=== PATIENT | male | born 1970 | race American Indian/Alaskan Native ===

== ENCOUNTER 2017-11-11 13:46 | Inpatient (IN) | payer OTHER ==
[2017-11-11 15:57] LABS: Hematocrit 42.4 % (35.5-45.6); Hemoglobin 14.5 gm/dl (11.8-15.2); Mean Corpuscular HGB Conc 34 % (32-34); Mean Corpuscular Hemoglobin 32 pg (28-32); Mean Corpuscular Volume 93 fl (84-94); Platelet Count 329 K/mm3 (140-440); Red Blood Count 4.58 M/mm3 (3.65-5.03); Red Cell Distribution Width 15.5 % (13.2-15.2)
[2017-11-11 15:58] LABS: Basophils % (Auto) 0.4 % (0.0-1.8); Eosinophils % (Auto) 0.7 % (0.0-4.3); INR 0.87 (0.87-1.13); Lymphocytes # (Auto) 1.4 K/mm3 (1.2-5.4); Lymphocytes % (Auto) 25.3 % (13.4-35.0); Monocytes # (Auto) 0.5 K/mm3 (0.0-0.8); Monocytes % (Auto) 8.9 % (0.0-7.3)
[2017-11-11 15:59] LABS: Partial Thromboplastin Time 31.7 Sec. (24.2-36.6)
[2017-11-11 16:08] LABS: Lipase 218 units/L (13-60)
[2017-11-11 16:10] LABS: Alanine Aminotransferase 549 units/L (7-56); Albumin 4.3 g/dL (3.9-5); BUN/Creatinine Ratio 37; Blood Urea Nitrogen 11 mg/dL (9-20); Calcium 10.1 mg/dL (8.4-10.2); Hemolysis Index 18
[2017-11-11 16:21] LABS: Bilirubin,Direct 10.3 mg/dL (0-0.2)
[2017-11-11] MEDS ORDERED: ZOSYN/NS 3.375GM/50ML 3.375 GM/50 ML BAG IV ONE (18:09)
[2017-11-11] MEDS ORDERED: NACL 0.9% 1000 ML 1,000 ML ONE (18:31)
--- NOTE | 2017-11-11 18:43 | Emergency Department Report ---
ED Abdominal Pain HPI - General Chief Complaint: Abdominal Pain Stated Complaint: ABD PAIN, YELLOW EYES Time Seen by Provider: 11/11/17 17:05 Source: patient Mode of arrival: Ambulatory Limitations: No Limitations - History of Present Illness Initial Comments: Percocet on the of this month he started having diarrhea and areas progressively gotten worse. A few days prior to that he was having some abdominal pain in the epigastric area, moderate intensity, nonradiating with no aggravating or relieving factor. Patient denies any nausea or vomiting or fever. Patient also noticed a few days ago that the white parts of his eyes have been yellowish in color. He describes his epigastric pain as intermittent MD Complaint: abdominal pain Onset/Timin -: days(s) Migration to: epigastric Severity scale (0 -10): 0 - Related Data Allergies Allergy/AdvReac Type Severity Reaction Status Date / Time No Known Allergies Allergy Unverified 11/11/17 14:35 ED Review of Systems ROS: Stated complaint: ABD PAIN, YELLOW EYES Other details as noted in HPI Comment: All other systems reviewed and negative ED Past Medical Hx - Past Medical History Previous Medical History?: Yes Additional medical history: ETOH abuse - Surgical History Past Surgical History?: No - Social History Smoking Status: Never Smoker Substance Use Type: Alcohol, Non Opiate Pain ED Physical Exam - General Limitations: No Limitations General appearance: alert, in no apparent distress - Head Head exam: Present: atraumatic, normocephalic - Eye Eye exam: Present: other (icteric conjunctiva) - ENT ENT exam: Present: mucous membranes moist - Neck Neck exam: Present: normal inspection. Absent: tenderness - Respiratory Respiratory exam: Present: normal lung sounds bilaterally. Absent: respiratory distress - Cardiovascular Cardiovascular Exam: Present: regular rate, normal rhythm. Absent: systolic murmur, diastolic murmur, rubs, gallop - GI/Abdominal GI/Abdominal exam: Present: soft, normal bowel sounds - Rectal Rectal exam: Present: deferred - Extremities Exam Extremities exam: Present: normal inspection - Back Exam Back exam: Present: normal inspection, full ROM - Neurological Exam Neurological exam: Present: alert, oriented X3 - Psychiatric Psychiatric exam: Present: normal affect, normal mood - Skin Skin exam: Present: warm, dry, intact, normal color. Absent: rash ED Course Vital Signs 11/11/17 11/11/17 14:35 17:01 Temperature 98.6 F 98.4 F Pulse Rate 101 H 92 H Respiratory 20 14 Rate Blood Pressure 141/92 Blood Pressure 148/92 [Left] O2 Sat by Pulse 100 100 Oximetry ED Medical Decision Making - Lab Data Result diagrams: 11/11/17 15:25 11/11/17 15:25 Critical care attestation.: If time is entered above; I have spent that time in minutes in the direct care of this critically ill patient, excluding procedure time. ED Disposition Condition: Stable Referrals: PRIMARY CARE [Primary Care Provider] - 3-5 Days
[2017-11-11] MEDS ORDERED: NACL 0.9% 1000 ML 1,000 ML IV ONE ×2 (18:46→21:57)
--- NOTE | 2017-11-11 19:20 | Cat Scan Report ---
FINAL REPORT PROCEDURE: CT ABDOMEN PELVIS W CON TECHNIQUE: Computerized axial tomography of the abdomen and pelvis was performed after the IV injection of iodinated nonionic contrast. HISTORY: choledocholithiasis, pancreatitis COMPARISON: No prior studies are available for comparison. FINDINGS: Lower Lung yeung: No focal abnormality seen. Upper Abdomen: There is mild increased density dependently in the gallbladder. There may be sludge or noncalcified gallstones. The intrahepatic ducts are mildly diffusely distended. Common bile duct also appears mildly distended. Pancreatic duct also appears mildly prominent. The pancreas otherwise is unremarkable. No masses or pseudocysts are identified. There appears to be minimal hazy increased density in the adipose tissue adjacent to the pancreas. I cannot exclude mild pancreatitis. The adrenal glands and the spleen are unremarkable. Kidneys, Ureters and Urinary bladder: There are few small low-density cortical nodules in the left adrenal gland which appear to represent renal cortical cyst. The largest measures 1.8 centimeters greatest diameter. There appears to be early excretion of contrast from the collecting systems of both kidneys. No definite calculi are identified. There is no hydronephrosis. The ureters are not distended. No ureteral calculi are seen. The urinary bladder is unremarkable. Retroperitoneum: Abdominal aorta appears normal. No aneurysm is seen. Nonspecific subcentimeter lymph nodes are seen in the retroperitoneum. No pathologically enlarged lymph nodes are identified. Bowel: The left side of the colon appears collapsed otherwise unremarkable. No evidence of bowel obstruction or ascites. There is no free intraperitoneal gas. Normal-appearing appendix is seen in the upper pelvis to the right of midline. No acute bone abnormalities are identified. IMPRESSION: Intrahepatic bile duct dilatation. Common bile duct and pancreatic duct also appear dilated. There is mild increased density dependently in the gallbladder. I cannot exclude obstruction from stone or stricture in the distal common bile duct. There is minimal hazy increased density adjacent to the pancreas. I cannot exclude early pancreatitis. Pancreas otherwise is unremarkable. Small renal cortical cyst suspected left kidney. No other abnormalities are identified
[2017-11-11] MEDS ORDERED: ZOFRAN IV PRN (22:03)
[2017-11-11] MEDS ORDERED: MILK OF MAGNESIA PO PRN (22:03)
[2017-11-11] MEDS ORDERED: MORPHINE IV PRN (22:03)
[2017-11-11] MEDS ORDERED: DULCOLAX PR PRN (22:03)
--- NOTE | 2017-11-11 22:08 | History and Physical Report ---
History of Present Illness Date of examination: 11/11/17 History of present illness: 47-year-old man with history of alcohol abuse comes emergency room because his eyes turned yellow 2 days ago. He also complained of diarrhea, twice a day and abdominal pain. Abdominal pain is in the epigastric area which she describes as a sharp pain, intermittent in nature lasting for a few minutes, intensity 6/ 10, no radiation and he cannot identify exacerbating or relieving factors. His abdominal pain has been intermittent since October 29, no nausea vomiting, antibiotic use Review Of Systems: Constitutional: no weight loss Ears, eyes, nose, mouth and throat: no nasal congestion, no nasal discharge, no sinus pressure, blurry vision, diplopia Neck: No neck pain or rigidity. Cardiovascular: No chest pain, palpitations Respiratory: No shortness of breath, cough Gastrointestinal: No hematochezia Genitourinary : no dysuria, frequency , hematuria Musculoskeletal: no muscle ache Integumentary: no rash, no pruritis Neurological: no parathesias, focal weakness Endocrine: no cold or heat intolerance, no polyuria or polydipsia Hematologic/Lymphatic: no easy bruising, no easy bleeding, no gland swelling Allergic/Immunologic: no urticaria, no angioedema. PAST MEDICAL HISTORY:alcohol abuse PAST SURGICAL HISTORY: None FAMILY HISTORY: hypertention SOCIAL HISTORY: Drank one fifth of liquor on weekends, no tobacco or drugs Medications and Allergies Allergies Allergy/AdvReac Type Severity Reaction Status Date / Time No Known Allergies Allergy Unverified 11/11/17 14:35 Home Medications Medication Instructions Recorded Confirmed Last Taken Type No Known Home Medications [No 11/11/17 11/11/17 Unknown History Reported Home Medications] Active Meds: Active Medications Sodium Chloride (Nacl 0.9% 1000 Ml) 1,000 mls @ 999 mls/hr IV BOLUS ONE Stop: 11/11/17 22:57 Exam - Physical Exam Narrative exam: Gen. appearance: Patient lying in bed in no acute distress HEENT: Normocephalic/atraumatic, pupils equal round reactive to light, extra occular movement intact, no scleral icterus, no JVD or thyromegaly or nodule, neck is supple, mucous membrane moist, no erythema or exudate Heart: S1-S2, regular rate and rhythm Lungs: Clear to auscultation bilateral breathing comfortable Abdomen: Positive bowel sounds, tender in the epigastric area, nondistended, no organomegaly Extremities: No edema, cyanosis, clubbing Neuro:: Oriented 3 , cranial nerves II-12 intact, speech, motor intact Skin: No rash, nodules, warm dry - Constitutional Vitals: Temp Pulse Resp BP Pulse Ox 100.1 F H 87 22 124/76 100 11/11/17 19:33 11/11/17 19:33 11/11/17 19:33 11/11/17 19:33 11/11/17 19:33 Results - Labs CBC & Chem 7: 11/13/17 07:20 11/17/17 15:55 Labs: Abnormal lab results 11/11/17 11/11/17 11/11/17 Range/Units 15:25 15:25 15:25 RDW 15.5 H (13.2-15.2) % [place] % (Auto) 8.9 H (0.0-7.3) % Creatinine 0.3 L (0.8-1.5) mg/dL Glucose 101 H (75-100) mg/dL Lactic Acid 3.00 H* (0.7-2.0) mmol/L Total Bilirubin 15.60 H (0.1-1.2) mg/dL Direct Bilirubin 10.3 H (0-0.2) mg/dL AST 233 H (5-40) units/L ALT 549 H (7-56) units/L Alkaline Phosphatase 553 H (35-129) units/L Total Protein 8.5 H (6.3-8.2) g/dL Amylase (27-131) units/L Lipase (13-60) units/L 11/11/17 Range/Units 15:25 RDW (13.2-15.2) % [place] % (Auto) (0.0-7.3) % Creatinine (0.8-1.5) mg/dL Glucose (75-100) mg/dL Lactic Acid (0.7-2.0) mmol/L Total Bilirubin (0.1-1.2) mg/dL Direct Bilirubin (0-0.2) mg/dL AST (5-40) units/L ALT (7-56) units/L Alkaline Phosphatase (35-129) units/L Total Protein (6.3-8.2) g/dL Amylase 174 H (27-131) units/L Lipase 218 H (13-60) units/L - Imaging and Cardiology CT scan - abdomen: report reviewed CT scan - pelvis: report reviewed Assessment and Plan Assessment Gallstone pancreatitis Alcohol abuse Plan Admit to medicine Placed on bowel rest, start IV fluid, IV antibiotics, consult GI IV morphine, DVT prophylaxis
[2017-11-12] MEDS: ZOSYN/NS 4.5GM/100ML 4.5 GM/100 ML VIAL IV SCH ×4 (01:07→18:09)
[2017-11-12] MEDS: NACL 0.9% 1000 ML 1,000 ML IV SCH ×2 (01:07→10:30)
[2017-11-12 08:26] LABS: Basophils % (Auto) 0.4 % (0.0-1.8); Eosinophils # (Auto) 0.1 K/mm3 (0.0-0.4); Hematocrit 37.5 % (35.5-45.6); Hemoglobin 12.8 gm/dl (11.8-15.2); Lymphocytes # (Auto) 1.8 K/mm3 (1.2-5.4); Lymphocytes % (Auto) 42.6 % (13.4-35.0); Mean Corpuscular HGB Conc 34 % (32-34); Mean Corpuscular Hemoglobin 31 pg (28-32); Mean Corpuscular Volume 92 fl (84-94); Monocytes # (Auto) 0.4 K/mm3 (0.0-0.8); Monocytes % (Auto) 9.1 % (0.0-7.3); Platelet Count 235 K/mm3 (140-440); Red Blood Count 4.06 M/mm3 (3.65-5.03); Red Cell Distribution Width 15.2 % (13.2-15.2)
[2017-11-12 08:39] LABS: BUN/Creatinine Ratio 20; Blood Urea Nitrogen 8 mg/dL (9-20); Calcium 8.5 mg/dL (8.4-10.2); Hemolysis Index 0
--- NOTE | 2017-11-12 09:55 | Gastroenterology Consultation ---
History of Present Illness - Reason for Consult Consult date: 11/12/17 dilated CBD Requesting physician: SABINE MCKENZIE - History of Present Illness Patient is a 47 y/o male with PMH of ETOH abuse who presented to ED with c/o diarrhea, abdominal pain in the epigastric area described as intermittent, nonradiating, sharp, lasting for only a few minutes, along with yellowish color in his eyes. LFTs and lipase elevated on admission with Abd CT showing CBD dilation, to which GI has been consulted. This morning pt was resting in bed w/ o acute distress. He reports his abd pain has improved. No BMs so far this am. Denies fever, wt loss, N/V, pruritus, or signs of bleeding. No known hx or Fhx of liver disease. Admits to ETOH abuse with drinking on average one fifth of liquor per week. No hx of IV drug use. Past History Past Medical History: No medical history Past Surgical History: No surgical history Social history: alcohol abuse Family history: hypertension Medications and Allergies Allergies Allergy/AdvReac Type Severity Reaction Status Date / Time No Known Allergies Allergy Unverified 11/11/17 14:35 Home Medications Medication Instructions Recorded Confirmed Last Taken Type No Known Home Medications [No 11/11/17 11/11/17 Unknown History Reported Home Medications] Active Meds: Active Medications Acetaminophen (Tylenol) 650 mg PO Q4H PRN PRN Reason: Pain MILD(1-3)/Fever >100.5/ZHENG Bisacodyl (Dulcolax) 10 mg IN QDAY PRN PRN Reason: Constipation unrelieved by MOM Enoxaparin Sodium (Lovenox) 40 mg SUB-Q QDAY [facility] Sodium Chloride (Nacl 0.9% 1000 Ml) 1,000 mls @ 150 mls/hr IV DIRECT [facility] Last Admin: 11/12/17 01:07 Dose: 150 mls/hr Piperacillin Sod/Tazobactam Sod (Zosyn/Ns 4.5gm/100ml) 4.5 gm in 100 mls @ 200 mls/hr IV Q6HR DAY PRN Reason: Protocol Last Admin: 11/12/17 05:32 Dose: 200 mls/hr Magnesium Hydroxide (Milk Of Magnesia) 30 ml PO Q4H PRN PRN Reason: Constipation Morphine Sulfate (Morphine) 2 mg IV Q4H PRN PRN Reason: Pain, Moderate (4-6) Ondansetron HCl (Zofran) 4 mg IV Q8H PRN PRN Reason: N/V unrelieved by Reglan Review of Systems - Review of Systems All systems: negative Gastrointestinal: abdominal pain, diarrhea, jaundice Exam - Constitutional Vital Signs: Temp Pulse Resp BP Pulse Ox 98.7 F 80 20 122/79 99 11/12/17 08:28 11/12/17 08:28 11/12/17 08:28 11/12/17 08:28 11/12/17 08:28 General appearance: no acute distress, well-nourished - EENT Eyes: scleral icterus - Respiratory Respiratory: bilateral: CTA - Cardiovascular Rhythm: regular Heart Sounds: Present: S1 & S2 - Gastrointestinal General gastrointestinal: Present: soft, non-tender, non-distended, normal bowel sounds - Integumentary Integumentary: Present: warm, dry - Neurologic Neurological: alert and oriented x3 - Labs CBC & Chem 7: 11/12/17 07:06 11/12/17 07:06 Lab Results: Laboratory Results - last 24 hr 11/11/17 11/11/17 11/11/17 15:25 15:25 15:25 WBC 5.7 RBC 4.58 Hgb 14.5 Hct 42.4 MCV 93 MCH 32 MCHC 34 RDW 15.5 H Plt Count 329 Lymph % (Auto) 25.3 [place] % (Auto) 8.9 H Eos % (Auto) 0.7 Baso % (Auto) 0.4 Lymph # 1.4 [place] # 0.5 Eos # 0.0 Baso # 0.0 Seg Neutrophils % 64.7 Seg Neutrophils # 3.7 PT INR APTT Sodium 143 Potassium 3.6 Chloride 101.2 Carbon Dioxide 26 Anion Gap 19 BUN 11 Creatinine 0.3 L Estimated GFR > 60 BUN/Creatinine Ratio 37 Glucose 101 H Lactic Acid Calcium 10.1 Total Bilirubin 15.60 H Direct Bilirubin 10.3 H Indirect Bilirubin 5.3 AST 233 H ALT 549 H Alkaline Phosphatase 553 H Ammonia 39.0 Total Creatine Kinase 92 Total Protein 8.5 H Albumin 4.3 Albumin/Globulin Ratio 1.0 Amylase Lipase Plasma/Serum Alcohol 11/11/17 11/11/17 11/11/17 15:25 15:25 15:25 WBC RBC Hgb Hct MCV MCH MCHC RDW Plt Count Lymph % (Auto) [place] % (Auto) Eos % (Auto) Baso % (Auto) Lymph # [place] # Eos # Baso # Seg Neutrophils % Seg Neutrophils # PT 12.2 INR 0.87 APTT 31.7 Sodium Potassium Chloride Carbon Dioxide Anion Gap BUN Creatinine Estimated GFR BUN/Creatinine Ratio Glucose Lactic Acid 3.00 H* Calcium Total Bilirubin Direct Bilirubin Indirect Bilirubin AST ALT Alkaline Phosphatase Ammonia Total Creatine Kinase Total Protein Albumin Albumin/Globulin Ratio Amylase 174 H Lipase 218 H Plasma/Serum Alcohol 11/11/17 11/11/17 11/12/17 15:25 22:04 07:06 WBC 4.1 L RBC 4.06 Hgb 12.8 Hct 37.5 MCV 92 MCH 31 MCHC 34 RDW 15.2 Plt Count 235 Lymph % (Auto) 42.6 H [place] % (Auto) 9.1 H Eos % (Auto) 2.0 Baso % (Auto) 0.4 Lymph # 1.8 [place] # 0.4 Eos # 0.1 Baso # 0.0 Seg Neutrophils % 45.9 Seg Neutrophils # 1.9 PT INR APTT Sodium Potassium Chloride Carbon Dioxide Anion Gap BUN Creatinine Estimated GFR BUN/Creatinine Ratio Glucose Lactic Acid 1.10 Calcium Total Bilirubin Direct Bilirubin Indirect Bilirubin AST ALT Alkaline Phosphatase Ammonia Total Creatine Kinase Total Protein Albumin Albumin/Globulin Ratio Amylase Lipase Plasma/Serum Alcohol < 0.01 11/12/17 07:06 WBC RBC Hgb Hct MCV MCH MCHC RDW Plt Count Lymph % (Auto) [place] % (Auto) Eos % (Auto) Baso % (Auto) Lymph # [place] # Eos # Baso # Seg Neutrophils % Seg Neutrophils # PT INR APTT Sodium 143 Potassium 3.5 L Chloride 106.5 Carbon Dioxide 22 Anion Gap 18 BUN 8 L Creatinine 0.4 L Estimated GFR > 60 BUN/Creatinine Ratio 20 Glucose 88 Lactic Acid Calcium 8.5 D Total Bilirubin Direct Bilirubin Indirect Bilirubin AST ALT Alkaline Phosphatase Ammonia Total Creatine Kinase Total Protein Albumin Albumin/Globulin Ratio Amylase Lipase Plasma/Serum Alcohol Assessment and Plan 1.Dilated CBD 2.pancreatitis 2.Alcohol abuse -afebrile -WBC-WNL -plt 235, INR 0.87 -AST 233, ALT 549, alk phos 553, T.oswaldo 15.6 -lipase 218 -Abd CT showed intrahepatic bile duct dilation along with CBD and pancreatic duct dilation suggestive of stone vs stricture -will order MRCP and consider ERCP pending results -continue supportive care with IVF, pain management, and f/u labs -[facility] protocol -will follow
[2017-11-12] MEDS: LOVENOX SUB-Q SCH (10:39)
--- NOTE | 2017-11-12 15:33 | Progress Note ---
Assessment and Plan Assessment and plan: 47-year-old -[place] man with past medical history significant for "abuse presented to the emergency department complaining of abdominal pain and jaundice. Pancreatitis - Right upper quadrant pain, increased lipase, CT is suggestive - Bowel rest, pain control, IV fluid, get consulted - Currently abdominal pain is subsided - Will start clear liquid diet Transaminitis - Likely due to chronic hepatitis - We'll monitor - CT showed hepatic and pancreatic duct dilation - Patient need MRCP/ERCP - Hepatitis panel Alcohol Abuse - Patient counseled - We'll monitor for withdrawal, if he showed symptoms of withdrawal we'll put him on CIWA protocol DVT prophylaxis -Heparin Disposition - Continue inpatient care History Interval history: Patient was seen and evaluated this morning, abdominal pain subsided, no fever or chills. Hospitalist Physical - Physical exam Narrative exam: Not in cardiopulmonary distress. The patient appeared well nourished and normally developed. Vital signs as documented. Head exam is unremarkable. + scleral icterus . Neck is without jugular venous distension, thyromegaly, or carotid bruits. Lungs are clear to auscultation. Cardiac exam reveals regular rate and Rhythm. First and second heart sounds normal. No murmurs, rubs or gallops. Abdominal exam reveals normal bowel sounds, no masses, no organomegaly and no aortic enlargement. Extremities are nonedematous and both femoral and pedal pulses are normal. GUN NUMBER: Alert and oriented 3. No focal weakness. - Constitutional Vitals: Temp Pulse Resp BP Pulse Ox 98.7 F 80 20 122/79 100 11/12/17 08:28 11/12/17 08:28 11/12/17 08:28 11/12/17 08:28 11/12/17 10:00 Results - Labs CBC & Chem 7: 11/12/17 07:06 11/12/17 07:06 Labs: Laboratory Last Values WBC 4.1 K/mm3 (4.5-11.0) L 11/12/17 07:06 RBC 4.06 M/mm3 (3.65-5.03) 11/12/17 07:06 Hgb 12.8 gm/dl (11.8-15.2) 11/12/17 07:06 Hct 37.5 % (35.5-45.6) 11/12/17 07:06 MCV 92 fl (84-94) 11/12/17 07:06 MCH 31 pg (28-32) 11/12/17 07:06 MCHC 34 % (32-34) 11/12/17 07:06 RDW 15.2 % (13.2-15.2) 11/12/17 07:06 Plt Count 235 K/mm3 (140-440) 11/12/17 07:06 Lymph % (Auto) 42.6 % (13.4-35.0) H 11/12/17 07:06 [place] % (Auto) 9.1 % (0.0-7.3) H 11/12/17 07:06 Eos % (Auto) 2.0 % (0.0-4.3) 11/12/17 07:06 Baso % (Auto) 0.4 % (0.0-1.8) 11/12/17 07:06 Lymph # 1.8 K/mm3 (1.2-5.4) 11/12/17 07:06 [place] # 0.4 K/mm3 (0.0-0.8) 11/12/17 07:06 Eos # 0.1 K/mm3 (0.0-0.4) 11/12/17 07:06 Baso # 0.0 K/mm3 (0.0-0.1) 11/12/17 07:06 Seg Neutrophils % 45.9 % (40.0-70.0) 11/12/17 07:06 Seg Neutrophils # 1.9 K/mm3 (1.8-7.7) 11/12/17 07:06 PT 12.2 Sec. (12.2-14.9) 11/11/17 15:25 INR 0.87 (0.87-1.13) 11/11/17 15:25 APTT 31.7 Sec. (24.2-36.6) 11/11/17 15:25 Sodium 143 mmol/L (137-145) 11/12/17 07:06 Potassium 3.5 mmol/L (3.6-5.0) L 11/12/17 07:06 Chloride 106.5 mmol/L (98-107) 11/12/17 07:06 Carbon Dioxide 22 mmol/L (22-30) 11/12/17 07:06 Anion Gap 18 mmol/L 11/12/17 07:06 BUN 8 mg/dL (9-20) L 11/12/17 07:06 Creatinine 0.4 mg/dL (0.8-1.5) L 11/12/17 07:06 Estimated GFR > 60 ml/min 11/12/17 07:06 BUN/Creatinine Ratio 20 % 11/12/17 07:06 Glucose 88 mg/dL (75-100) 11/12/17 07:06 Lactic Acid 1.10 mmol/L (0.7-2.0) 11/11/17 22:04 Calcium 8.5 mg/dL (8.4-10.2) D 11/12/17 07:06 Total Bilirubin 15.60 mg/dL (0.1-1.2) H 11/11/17 15:25 Direct Bilirubin 10.3 mg/dL (0-0.2) H 11/11/17 15:25 Indirect Bilirubin 5.3 mg/dL 11/11/17 15:25 AST 233 units/L (5-40) H 11/11/17 15:25 ALT 549 units/L (7-56) H 11/11/17 15:25 Alkaline Phosphatase 553 units/L (35-129) H 11/11/17 15:25 Ammonia 39.0 umol/L (25-60) 11/11/17 15:25 Total Creatine Kinase 92 units/L (55-170) 11/11/17 15:25 Total Protein 8.5 g/dL (6.3-8.2) H 11/11/17 15:25 Albumin 4.3 g/dL (3.9-5) 11/11/17 15:25 Albumin/Globulin Ratio 1.0 % 11/11/17 15:25 Amylase 174 units/L (27-131) H 11/11/17 15:25 Lipase 218 units/L (13-60) H 11/11/17 15:25 Plasma/Serum Alcohol < 0.01 % (0-0.07) 11/11/17 15:25 - Imaging and Cardiology US - abdomen: report reviewed
--- NOTE | 2017-11-12 20:03 | Magnetic Resonance Report ---
FINAL REPORT PROCEDURE: MR ABDOMEN MRCP TECHNIQUE: MRI of the abdomen without contrast and magnetic resonance cholangiopancreatography of the biliary system was performed without paramagnetic contrast. The original data was reconstructed in 3-dimensions. HISTORY: jaundice, CBD dilation COMPARISON: No prior studies are available for comparison. FINDINGS: Liver: Limited views are normal. Intrahepatic bile ducts: There is dilatation of intrahepatic biliary ducts Extrahepatic bile ducts: The common bile duct is dilated up to 13 millimeters. No filling defects are seen, however there is abrupt narrowing of the distal common bile duct just proximal to the duodenum, with a stricture not excluded. Gallbladder: Gallbladder is mildly distended. There are layering filling defects within the gallbladder lumen, compatible with gallstones or gallbladder sludge Pancreatic ducts: Pancreatic duct is dilated up to 6 millimeters Left renal cyst is present, measuring up to 1 centimeter in caliber IMPRESSION: Cholelithiasis and/or gallbladder sludge. Biliary ducts are dilated. There is abrupt narrowing of the distal common bile duct just proximal to the duodenum, suspicious for a stricture, possibly benign or malignant. Further evaluation with ERCP could be obtained as clinically indicated
[2017-11-13] MEDS: ZOSYN/NS 4.5GM/100ML 4.5 GM/100 ML VIAL IV SCH ×4 (00:37→18:49)
[2017-11-13] MEDS: NACL 0.9% 1000 ML 1,000 ML IV SCH ×3 (00:40→21:20)
[2017-11-13 07:39] LABS: Basophils % (Auto) 0.7 % (0.0-1.8); Eosinophils # (Auto) 0.1 K/mm3 (0.0-0.4); Eosinophils % (Auto) 3.4 % (0.0-4.3); Hematocrit 35.8 % (35.5-45.6); Hemoglobin 12.3 gm/dl (11.8-15.2); Lymphocytes # (Auto) 1.4 K/mm3 (1.2-5.4); Lymphocytes % (Auto) 33.1 % (13.4-35.0); Mean Corpuscular HGB Conc 35 % (32-34); Mean Corpuscular Hemoglobin 32 pg (28-32); Mean Corpuscular Volume 92 fl (84-94); Monocytes # (Auto) 0.3 K/mm3 (0.0-0.8); Monocytes % (Auto) 7.8 % (0.0-7.3); Platelet Count 229 K/mm3 (140-440); Red Blood Count 3.88 M/mm3 (3.65-5.03)
[2017-11-13 08:00] LABS: Alanine Aminotransferase 381 units/L (7-56); Albumin 3.1 g/dL (3.9-5); BUN/Creatinine Ratio 12; Blood Urea Nitrogen 6 mg/dL (9-20); Calcium 8.7 mg/dL (8.4-10.2); Hemolysis Index 0; Lipase 231 units/L (13-60)
--- NOTE | 2017-11-13 08:57 | Event Note ---
Date: 11/13/17 MRCP showed abrupt narrowing of the distal common bile duct, suspicious for a stricture (possible benign or malignant). Keep pt NPO. Will schedule for ERCP today and order CA 19-9.
[2017-11-13] MEDS: LOVENOX SUB-Q SCH (09:51)
[2017-11-13] MEDS ORDERED: K-DUR PO ONE (10:50)
[2017-11-13] MEDS ORDERED: WATER FOR IRRIG STERILE IR ONE (14:36)
[2017-11-13] MEDS ORDERED: NACL 0.9% 100 ML ONE (14:36)
--- NOTE | 2017-11-13 15:48 | Progress Note ---
Assessment and Plan Assessment and plan: 47-year-old -Russian man with past medical history significant for "abuse presented to the emergency department complaining of abdominal pain and jaundice. Pancreatitis - Right upper quadrant pain, increased lipase, CT is suggestive - Bowel rest, pain control, IV fluid, get consulted - Currently abdominal pain is subsided - Advance diet Transaminitis - Likely due to chronic hepatitis - We'll monitor - CT showed hepatic and pancreatic duct dilation - MRCP showed Narrowing, could be stricture or malignancy versus benign mass - Patient will have ERCP today - Hepatitis panel Alcohol Abuse - Patient counseled - We'll monitor for withdrawal, if he showed symptoms of withdrawal we'll put him on CIWA protocol DVT prophylaxis -Heparin Disposition - Continue inpatient care and if ERCP is negative will discharge the patient tomorrow. History Interval history: Patient was seen and evaluated this morning, abdominal pain subsided, no fever or chills. Hospitalist Physical - Physical exam Narrative exam: Not in cardiopulmonary distress. The patient appeared well nourished and normally developed. Vital signs as documented. Head exam is unremarkable. + scleral icterus . Neck is without jugular venous distension, thyromegaly, or carotid bruits. Lungs are clear to auscultation. Cardiac exam reveals regular rate and Rhythm. First and second heart sounds normal. No murmurs, rubs or gallops. Abdominal exam reveals normal bowel sounds, no masses, no organomegaly and no aortic enlargement. Extremities are nonedematous and both femoral and pedal pulses are normal. K9 HANDLER: Alert and oriented 3. No focal weakness. - Constitutional Vitals: Temp Pulse Resp BP Pulse Ox 98.5 F 94 H 17 165/107 100 11/13/17 13:42 11/13/17 13:42 11/13/17 13:42 11/13/17 13:42 11/13/17 13:42 Results - Labs CBC & Chem 7: 11/13/17 07:20 11/13/17 07:20 Labs: Laboratory Last Values WBC 4.4 K/mm3 (4.5-11.0) L 11/13/17 07:20 RBC 3.88 M/mm3 (3.65-5.03) 11/13/17 07:20 Hgb 12.3 gm/dl (11.8-15.2) 11/13/17 07:20 Hct 35.8 % (35.5-45.6) 11/13/17 07:20 MCV 92 fl (84-94) 11/13/17 07:20 MCH 32 pg (28-32) 11/13/17 07:20 MCHC 35 % (32-34) H 11/13/17 07:20 RDW 15.0 % (13.2-15.2) 11/13/17 07:20 Plt Count 229 K/mm3 (140-440) 11/13/17 07:20 Lymph % (Auto) 33.1 % (13.4-35.0) 11/13/17 07:20 Jackson % (Auto) 7.8 % (0.0-7.3) H 11/13/17 07:20 Eos % (Auto) 3.4 % (0.0-4.3) 11/13/17 07:20 Baso % (Auto) 0.7 % (0.0-1.8) 11/13/17 07:20 Lymph # 1.4 K/mm3 (1.2-5.4) 11/13/17 07:20 Jackson # 0.3 K/mm3 (0.0-0.8) 11/13/17 07:20 Eos # 0.1 K/mm3 (0.0-0.4) 11/13/17 07:20 Baso # 0.0 K/mm3 (0.0-0.1) 11/13/17 07:20 Seg Neutrophils % 55.0 % (40.0-70.0) 11/13/17 07:20 Seg Neutrophils # 2.4 K/mm3 (1.8-7.7) 11/13/17 07:20 PT 12.2 Sec. (12.2-14.9) 11/11/17 15:25 INR 0.87 (0.87-1.13) 11/11/17 15:25 APTT 31.7 Sec. (24.2-36.6) 11/11/17 15:25 Sodium 141 mmol/L (137-145) 11/13/17 07:20 Potassium 3.3 mmol/L (3.6-5.0) L 11/13/17 07:20 Chloride 104.8 mmol/L (98-107) 11/13/17 07:20 Carbon Dioxide 23 mmol/L (22-30) 11/13/17 07:20 Anion Gap 17 mmol/L 11/13/17 07:20 BUN 6 mg/dL (9-20) L 11/13/17 07:20 Creatinine 0.5 mg/dL (0.8-1.5) L 11/13/17 07:20 Estimated GFR > 60 ml/min 11/13/17 07:20 BUN/Creatinine Ratio 12 % 11/13/17 07:20 Glucose 85 mg/dL (75-100) 11/13/17 07:20 Lactic Acid 1.10 mmol/L (0.7-2.0) 11/11/17 22:04 Calcium 8.7 mg/dL (8.4-10.2) 11/13/17 07:20 Total Bilirubin 11.10 mg/dL (0.1-1.2) H 11/13/17 07:20 Direct Bilirubin 10.3 mg/dL (0-0.2) H 11/11/17 15:25 Indirect Bilirubin 5.3 mg/dL 11/11/17 15:25 AST 161 units/L (5-40) H 11/13/17 07:20 ALT 381 units/L (7-56) H 11/13/17 07:20 Alkaline Phosphatase 356 units/L (35-129) H 11/13/17 07:20 Ammonia 39.0 umol/L (25-60) 11/11/17 15:25 Total Creatine Kinase 92 units/L (55-170) 11/11/17 15:25 C-Reactive Protein 0.20 mg/dL (0.00-1.30) 11/13/17 07:20 Total Protein 6.2 g/dL (6.3-8.2) L D 11/13/17 07:20 Albumin 3.1 g/dL (3.9-5) L 11/13/17 07:20 Albumin/Globulin Ratio 1.0 % 11/13/17 07:20 Triglycerides 111 mg/dL (2-149) 11/13/17 07:20 Amylase 174 units/L (27-131) H 11/11/17 15:25 Lipase 231 units/L (13-60) H 11/13/17 07:20 Plasma/Serum Alcohol < 0.01 % (0-0.07) 11/11/17 15:25 Hypokalemia
[2017-11-13] MEDS ORDERED: SUBLIMAZE ONE (15:53)
[2017-11-13] MEDS ORDERED: DIPRIVAN 10 MG/ML IV ONE ×2 (15:54)
[2017-11-13] MEDS ORDERED: ePHEDrine SULFATE ONE (15:54)
[2017-11-13] MEDS ORDERED: NEOSTIGMINE ONE (17:42)
[2017-11-13] MEDS ORDERED: XYLOCAINE MPF 2% ONE (17:42)
[2017-11-13] MEDS ORDERED: ZEMURON IV ONE (17:42)
[2017-11-13] MEDS ORDERED: ZOFRAN ONE (17:42)
[2017-11-13] MEDS ORDERED: DECADRON ONE (17:42)
[2017-11-13] MEDS ORDERED: QUELICIN ONE (17:42)
[2017-11-13] MEDS ORDERED: ROBINUL ONE (17:42)
--- NOTE | 2017-11-13 19:50 | Post Operative Note ---
Pre-op diagnosis: biliary obstruction, abnormal lft's Post-op diagnosis: same Findings: ERCP: bulging ampullae - difficult procedure - bilated pancreatic duct - unable to cannulate CBD despite multiple attempts and pre-cut sphinterotomy Procedure: ERCP Anesthesia: MAC Surgeon: HARSH PARIKH Estimated blood loss: none Pathology: none Condition: stable Disposition: floor
--- NOTE | 2017-11-14 00:39 | Operative Report ---
INDICATION: 1. Biliary obstruction. 2. Abnormal liver function test. MEDICATIONS: Propofol per SALES ASSISTANT DISPLAYS. COMPLICATIONS: None. DESCRIPTION OF PROCEDURE: The patient brought to procedure suite. The patient had the procedure discussed with him at length. All risks, complications and benefits discussed with the patient and signed for the procedure to be performed. The patient was placed in left lateral decubitus position. Mouth block was placed in the patient's oral cavity. After adequate sedation medication as above, endoscope placed in the mouth and brought to the level of the second portion of duodenum. Retroflexion view was performed. The patient's vital signs remained stable throughout the procedure. FINDINGS: There was noted to be normal appearing esophagus and stomach. There was a bulging ampulla noted in the second portion of duodenum. The sphincterotome was then inserted. This was a difficult procedure. Pancreatogram showed a slightly dilated pancreatic duct above 5-6 mm. Despite multiple attempts and use of a precut sphincterotomy, we were unable to get a cholangiogram. Precut sphincterotomy was attempted. No further interventions were performed. The patient tolerated the procedure well. No complications during the procedure. IMPRESSION: 1. Normal stomach and esophagus. 2. Bulging ampulla. 3. Slightly dilated common bile duct. 4. Unable to cannulate common bile duct. RECOMMENDATIONS: 1. Follow labs. 2. We will discuss PTC versus repeat ERCP with Dr. Ferro. 3. Further recommendation based on progress. JOB# [id number] CAB/NTS
[2017-11-14] MEDS: ZOSYN/NS 4.5GM/100ML 4.5 GM/100 ML VIAL IV SCH ×2 (00:43→05:49)
[2017-11-14] MEDS: NACL 0.9% 1000 ML 1,000 ML IV SCH ×2 (04:41→18:27)
[2017-11-14 08:07] LABS: Alanine Aminotransferase 408 units/L (7-56); Albumin 3.4 g/dL (3.9-5); BUN/Creatinine Ratio 10; Blood Urea Nitrogen 5 mg/dL (9-20); Calcium 8.8 mg/dL (8.4-10.2); Hemolysis Index 0
--- NOTE | 2017-11-14 09:28 | Fluoroscopy Report ---
FLUOROSCOPY ERCP PANCREATIC DUCT History: Dilated common bile duct. Common bile duct stricture. Findings: Fluoroscopy was provided by radiology during ERCP by gastroenterology. 10 fluoroscopic images were captured by the doctor performing the procedure. The images demonstrate injection of contrast agent into the pancreatic duct. The mid and distal pancreatic duct appears slightly dilated up to 5 mm. There is narrowing and mild irregularity of the proximal pancreatic duct. No images of the common bile duct were captured. Please correlate with the procedural report.
[2017-11-14] MEDS: LOVENOX SUB-Q SCH (10:07)
--- NOTE | 2017-11-14 11:56 | Consultation ---
History of Present Illness - Reason for Consult Consult date: 11/14/17 Hyperbilirubinemia - History of Present Illness Patient is a 47-year-old male with a history of right upper quadrant pain of 3- 4 days duration who presented with an of his intrahepatic and extrahepatic biliary ducts. He underwent an ERCP procedure with sphincterotomy however, given the degree of inflammation no stent was deployed. The patient's T bili however has been trending downward. He still has sequela of hyperbilirubinemia. No complaint of pain at this time. Past History Past Medical History: No medical history Past Surgical History: No surgical history Social history: alcohol abuse Family history: hypertension Medications and Allergies Allergies Allergy/AdvReac Type Severity Reaction Status Date / Time No Known Allergies Allergy Unverified 11/11/17 14:35 Home Medications Medication Instructions Recorded Confirmed Last Taken Type No Known Home Medications [No 11/11/17 11/11/17 Unknown History Reported Home Medications] Active Meds: Active Medications Acetaminophen (Tylenol) 650 mg PO Q4H PRN PRN Reason: Pain MILD(1-3)/Fever >100.5/ZHENG Bisacodyl (Dulcolax) 10 mg [place] QDAY PRN PRN Reason: Constipation unrelieved by MOM Enoxaparin Sodium (Lovenox) 40 mg SUB-Q QDAY DAY Last Admin: 11/14/17 10:07 Dose: 40 mg Sodium Chloride (Nacl 0.9% 1000 Ml) 1,000 mls @ 150 mls/hr IV DIRECT DAY Last Admin: 11/14/17 04:41 Dose: 150 mls/hr Magnesium Hydroxide (Milk Of Magnesia) 30 ml PO Q4H PRN PRN Reason: Constipation Morphine Sulfate (Morphine) 2 mg IV Q4H PRN PRN Reason: Pain, Moderate (4-6) Ondansetron HCl (Zofran) 4 mg IV Q8H PRN PRN Reason: N/V unrelieved by Reglan Review of Systems All systems: negative Exam - Constitutional Vitals: Temp Pulse Resp BP Pulse Ox 98.0 F 60 20 127/80 98 11/14/17 07:49 11/14/17 07:49 11/14/17 07:49 11/14/17 07:49 11/14/17 07:49 General appearance: Present: no acute distress - EENT Eyes: Present: PERRL, scleral icterus ENT: hearing intact - Neck Neck: Present: supple, normal ROM - Respiratory Respiratory effort: normal - Extremities Extremities: no ischemia - Abdominal General gastrointestinal: Present: non-tender Male genitourinary: Present: deferred - Rectal Rectal Exam: deferred - Integumentary Integumentary: Present: clear - Psychiatric Psychiatric: appropriate mood/affect, cooperative Results - Labs CBC & Chem 7: 11/13/17 07:20 11/14/17 07:01 Labs: Abnormal lab results 11/14/17 Range/Units 07:01 BUN 5 L (9-20) mg/dL Creatinine 0.5 L (0.8-1.5) mg/dL Glucose 107 H (75-100) mg/dL Total Bilirubin 10.80 H (0.1-1.2) mg/dL AST 172 H (5-40) units/L ALT 408 H (7-56) units/L Alkaline Phosphatase 331 H (35-129) units/L Albumin 3.4 L (3.9-5) g/dL - Imaging and Cardiology CT scan - abdomen: image reviewed Assessment and Plan Patient on initial presentation with hyperbilirubinemia, this T bili is trending down following his initial ERCP. We will remain available if percutaneous options appear appropriate.
--- NOTE | 2017-11-14 12:06 | Progress Note ---
Assessment and Plan 1. Obstructive jaundice - with biliary stricture, by MRCP. Pt failed ERCP. Etiology unclear, and may be inflammatory or neoplastic, or due to pancreatitis. Primary hepatocellular process less likely. - discussed with pt, Dr. Parra, and Dr. Ram - will reattempt ERCP on 11/16, allowing sphincterotomy edema to improve, and monitor LFTs in meantime. - if fail again, will have IR place PTC sheath to do rendez-vous procedure. Subjective Date of service: 11/14/17 Interval history: Pt feels well. No abd pain. Objective - Constitutional Vitals: Vital Signs - 12hr 11/14/17 07:49 Temperature 98.0 F Pulse Rate 60 Respiratory 20 Rate Blood Pressure 127/80 O2 Sat by Pulse 98 Oximetry General appearance: Present: no acute distress - EENT Eyes: PERRL, EOM intact, scleral icterus ENT: hearing intact - Respiratory Respiratory effort: normal - Gastrointestinal General gastrointestinal: Present: soft, non-tender - Labs CBC & Chem 7: 11/13/17 07:20 11/14/17 07:01 Labs: Abnormal lab results 11/14/17 Range/Units 07:01 BUN 5 L (9-20) mg/dL Creatinine 0.5 L (0.8-1.5) mg/dL Glucose 107 H (75-100) mg/dL Total Bilirubin 10.80 H (0.1-1.2) mg/dL AST 172 H (5-40) units/L ALT 408 H (7-56) units/L Alkaline Phosphatase 331 H (35-129) units/L Albumin 3.4 L (3.9-5) g/dL
--- NOTE | 2017-11-14 15:32 | Progress Note ---
Assessment and Plan Assessment and plan: 47-year-old -[place] man with past medical history significant for alcohol abuse presented to the emergency department complaining of abdominal pain and jaundice. Pancreatitis - Right upper quadrant pain, increased lipase - Patient was treated appropriately, currently abdominal pain subsided Transaminitis - ERCP failed to advance - Will have Repeat ERCP on Thursday, radiology consulted - Follow up transamnase level Alcohol Abuse - Patient counseled - We'll monitor for withdrawal, if he showed symptoms of withdrawal we'll put him on CIWA protocol DVT prophylaxis -Heparin Disposition - Will have repeat ERCP on thursday. History Interval history: Patient was seen and evaluated this morning, abdominal pain subsided, no fever or chills. Hospitalist Physical - Physical exam Narrative exam: Not in cardiopulmonary distress. The patient appeared well nourished and normally developed. Vital signs as documented. Head exam is unremarkable. + scleral icterus . Neck is without jugular venous distension, thyromegaly, or carotid bruits. Lungs are clear to auscultation. Cardiac exam reveals regular rate and Rhythm. First and second heart sounds normal. No murmurs, rubs or gallops. Abdominal exam reveals normal bowel sounds, no masses, no organomegaly and no aortic enlargement. Extremities are nonedematous and both femoral and pedal pulses are normal. CAPONIZER: Alert and oriented 3. No focal weakness. - Constitutional Vitals: Temp Pulse Resp BP Pulse Ox 98.0 F 60 20 127/80 98 11/14/17 07:49 11/14/17 07:49 11/14/17 07:49 11/14/17 07:49 11/14/17 07:49 General appearance: Present: no acute distress Results - Labs CBC & Chem 7: 11/13/17 07:20 11/14/17 07:01 Labs: Laboratory Last Values WBC 4.4 K/mm3 (4.5-11.0) L 11/13/17 07:20 RBC 3.88 M/mm3 (3.65-5.03) 11/13/17 07:20 Hgb 12.3 gm/dl (11.8-15.2) 11/13/17 07:20 Hct 35.8 % (35.5-45.6) 11/13/17 07:20 MCV 92 fl (84-94) 11/13/17 07:20 MCH 32 pg (28-32) 11/13/17 07:20 MCHC 35 % (32-34) H 11/13/17 07:20 RDW 15.0 % (13.2-15.2) 11/13/17 07:20 Plt Count 229 K/mm3 (140-440) 11/13/17 07:20 Lymph % (Auto) 33.1 % (13.4-35.0) 11/13/17 07:20 Mathews % (Auto) 7.8 % (0.0-7.3) H 11/13/17 07:20 Eos % (Auto) 3.4 % (0.0-4.3) 11/13/17 07:20 Baso % (Auto) 0.7 % (0.0-1.8) 11/13/17 07:20 Lymph # 1.4 K/mm3 (1.2-5.4) 11/13/17 07:20 Mathews # 0.3 K/mm3 (0.0-0.8) 11/13/17 07:20 Eos # 0.1 K/mm3 (0.0-0.4) 11/13/17 07:20 Baso # 0.0 K/mm3 (0.0-0.1) 11/13/17 07:20 Seg Neutrophils % 55.0 % (40.0-70.0) 11/13/17 07:20 Seg Neutrophils # 2.4 K/mm3 (1.8-7.7) 11/13/17 07:20 PT 12.2 Sec. (12.2-14.9) 11/11/17 15:25 INR 0.87 (0.87-1.13) 11/11/17 15:25 APTT 31.7 Sec. (24.2-36.6) 11/11/17 15:25 Sodium 144 mmol/L (137-145) 11/14/17 07:01 Potassium 3.8 mmol/L (3.6-5.0) 11/14/17 07:01 Chloride 106.0 mmol/L (98-107) 11/14/17 07:01 Carbon Dioxide 23 mmol/L (22-30) 11/14/17 07:01 Anion Gap 19 mmol/L 11/14/17 07:01 BUN 5 mg/dL (9-20) L 11/14/17 07:01 Creatinine 0.5 mg/dL (0.8-1.5) L 11/14/17 07:01 Estimated GFR > 60 ml/min 11/14/17 07:01 BUN/Creatinine Ratio 10 % 11/14/17 07:01 Glucose 107 mg/dL (75-100) H 11/14/17 07:01 Lactic Acid 1.10 mmol/L (0.7-2.0) 11/11/17 22:04 Calcium 8.8 mg/dL (8.4-10.2) 11/14/17 07:01 Total Bilirubin 10.80 mg/dL (0.1-1.2) H 11/14/17 07:01 Direct Bilirubin 10.3 mg/dL (0-0.2) H 11/11/17 15:25 Indirect Bilirubin 5.3 mg/dL 11/11/17 15:25 AST 172 units/L (5-40) H 11/14/17 07:01 ALT 408 units/L (7-56) H 11/14/17 07:01 Alkaline Phosphatase 331 units/L (35-129) H 11/14/17 07:01 Ammonia 39.0 umol/L (25-60) 11/11/17 15:25 Total Creatine Kinase 92 units/L (55-170) 11/11/17 15:25 C-Reactive Protein 0.20 mg/dL (0.00-1.30) 11/13/17 07:20 Total Protein 6.4 g/dL (6.3-8.2) 11/14/17 07:01 Albumin 3.4 g/dL (3.9-5) L 11/14/17 07:01 Albumin/Globulin Ratio 1.1 % 11/14/17 07:01 Triglycerides 111 mg/dL (2-149) 11/13/17 07:20 Amylase 174 units/L (27-131) H 11/11/17 15:25 Lipase 231 units/L (13-60) H 11/13/17 07:20 Plasma/Serum Alcohol < 0.01 % (0-0.07) 11/11/17 15:25
[2017-11-14] MEDS: MORPHINE IV PRN (21:27)
[2017-11-15 08:30] LABS: Alanine Aminotransferase 356 units/L (7-56); Albumin 3.3 g/dL (3.9-5); BUN/Creatinine Ratio 12; Blood Urea Nitrogen 6 mg/dL (9-20); Calcium 8.5 mg/dL (8.4-10.2); Hemolysis Index 2
[2017-11-15] MEDS: LOVENOX SUB-Q SCH (09:39)
--- NOTE | 2017-11-15 12:09 | Progress Note ---
Assessment and Plan 1. Obstructive jaundice - with biliary stricture, by MRCP. Pt failed ERCP. Etiology unclear, and may be inflammatory or neoplastic, or due to pancreatitis. Primary hepatocellular process less likely. - discussed with pt, Dr. Parra, and Dr. Ram - will reattempt ERCP on 11/16, allowing sphincterotomy edema to improve, and monitor LFTs in meantime. - if fail again, will have IR place PTC sheath to do rendez-vous procedure. Subjective Date of service: 11/15/17 Interval history: Pt feels well. No abd pain. Candy po. Objective - Constitutional Vitals: Vital Signs - 12hr 11/15/17 11/15/17 01:00 08:08 Temperature 98.4 F Pulse Rate 62 Respiratory 18 Rate Respiratory 18 Rate [Abdomen] Blood Pressure 119/80 O2 Sat by Pulse 98 Oximetry General appearance: Present: no acute distress - EENT Eyes: PERRL, EOM intact, scleral icterus ENT: hearing intact - Respiratory Respiratory effort: normal - Gastrointestinal General gastrointestinal: Present: soft, non-tender, normal bowel sounds - Labs CBC & Chem 7: 11/13/17 07:20 11/15/17 07:28 Labs: Abnormal lab results 11/15/17 Range/Units 07:28 Chloride 107.8 H (98-107) mmol/L BUN 6 L (9-20) mg/dL Creatinine 0.5 L (0.8-1.5) mg/dL Total Bilirubin 9.80 H (0.1-1.2) mg/dL AST 136 H (5-40) units/L ALT 356 H (7-56) units/L Alkaline Phosphatase 289 H (35-129) units/L Total Protein 6.1 L (6.3-8.2) g/dL Albumin 3.3 L (3.9-5) g/dL
--- NOTE | 2017-11-15 14:31 | Progress Note ---
Assessment and Plan Assessment and plan: 47-year-old -Swedish man with past medical history significant for alcohol abuse presented to the emergency department complaining of abdominal pain and jaundice. Pancreatitis - Right upper quadrant pain, increased lipase - Patient was treated appropriately, currently abdominal pain subsided Obstructive jaundice - ERCP failed to advance - Will have Repeat ERCP on Thursday, radiology consulted - Follow up transamnase level Alcohol Abuse - Patient counseled - We'll monitor for withdrawal, if he showed symptoms of withdrawal we'll put him on CIWA protocol DVT prophylaxis -Heparin Disposition - Will have repeat ERCP on thursday. History Interval history: Patient was seen and evaluated this morning, patient is complaining mild pain in the throat and the epigastric area after ERCP, I don't believe it is due to pancreatitis. Hospitalist Physical - Physical exam Narrative exam: Not in cardiopulmonary distress. The patient appeared well nourished and normally developed. Vital signs as documented. Head exam is unremarkable. + scleral icterus . Neck is without jugular venous distension, thyromegaly, or carotid bruits. Lungs are clear to auscultation. Cardiac exam reveals regular rate and Rhythm. First and second heart sounds normal. No murmurs, rubs or gallops. Abdominal exam reveals normal bowel sounds, no masses, no organomegaly and no aortic enlargement. Extremities are nonedematous and both femoral and pedal pulses are normal. 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 No focal weakness. - Constitutional Vitals: Temp Pulse Resp BP Pulse Ox 98.4 F 62 18 119/80 98 11/15/17 08:08 11/15/17 08:08 11/15/17 08:08 11/15/17 08:08 11/15/17 09:00 General appearance: Present: no acute distress Results - Labs CBC & Chem 7: 11/13/17 07:20 11/15/17 07:28 Labs: Laboratory Last Values WBC 4.4 K/mm3 (4.5-11.0) L 11/13/17 07:20 RBC 3.88 M/mm3 (3.65-5.03) 11/13/17 07:20 Hgb 12.3 gm/dl (11.8-15.2) 11/13/17 07:20 Hct 35.8 % (35.5-45.6) 11/13/17 07:20 MCV 92 fl (84-94) 11/13/17 07:20 MCH 32 pg (28-32) 11/13/17 07:20 MCHC 35 % (32-34) H 11/13/17 07:20 RDW 15.0 % (13.2-15.2) 11/13/17 07:20 Plt Count 229 K/mm3 (140-440) 11/13/17 07:20 Lymph % (Auto) 33.1 % (13.4-35.0) 11/13/17 07:20 Will % (Auto) 7.8 % (0.0-7.3) H 11/13/17 07:20 Eos % (Auto) 3.4 % (0.0-4.3) 11/13/17 07:20 Baso % (Auto) 0.7 % (0.0-1.8) 11/13/17 07:20 Lymph # 1.4 K/mm3 (1.2-5.4) 11/13/17 07:20 Will # 0.3 K/mm3 (0.0-0.8) 11/13/17 07:20 Eos # 0.1 K/mm3 (0.0-0.4) 11/13/17 07:20 Baso # 0.0 K/mm3 (0.0-0.1) 11/13/17 07:20 Seg Neutrophils % 55.0 % (40.0-70.0) 11/13/17 07:20 Seg Neutrophils # 2.4 K/mm3 (1.8-7.7) 11/13/17 07:20 PT 12.2 Sec. (12.2-14.9) 11/11/17 15:25 INR 0.87 (0.87-1.13) 11/11/17 15:25 APTT 31.7 Sec. (24.2-36.6) 11/11/17 15:25 Sodium 143 mmol/L (137-145) 11/15/17 07:28 Potassium 3.9 mmol/L (3.6-5.0) 11/15/17 07:28 Chloride 107.8 mmol/L (98-107) H 11/15/17 07:28 Carbon Dioxide 24 mmol/L (22-30) 11/15/17 07:28 Anion Gap 15 mmol/L 11/15/17 07:28 BUN 6 mg/dL (9-20) L 11/15/17 07:28 Creatinine 0.5 mg/dL (0.8-1.5) L 11/15/17 07:28 Estimated GFR > 60 ml/min 11/15/17 07:28 BUN/Creatinine Ratio 12 % 11/15/17 07:28 Glucose 85 mg/dL (75-100) 11/15/17 07:28 Lactic Acid 1.10 mmol/L (0.7-2.0) 11/11/17 22:04 Calcium 8.5 mg/dL (8.4-10.2) 11/15/17 07:28 Total Bilirubin 9.80 mg/dL (0.1-1.2) H 11/15/17 07:28 Direct Bilirubin 10.3 mg/dL (0-0.2) H 11/11/17 15:25 Indirect Bilirubin 5.3 mg/dL 11/11/17 15:25 AST 136 units/L (5-40) H 11/15/17 07:28 ALT 356 units/L (7-56) H 11/15/17 07:28 Alkaline Phosphatase 289 units/L (35-129) H 11/15/17 07:28 Ammonia 39.0 umol/L (25-60) 11/11/17 15:25 Total Creatine Kinase 92 units/L (55-170) 11/11/17 15:25 C-Reactive Protein 0.20 mg/dL (0.00-1.30) 11/13/17 07:20 Total Protein 6.1 g/dL (6.3-8.2) L 11/15/17 07:28 Albumin 3.3 g/dL (3.9-5) L 11/15/17 07:28 Albumin/Globulin Ratio 1.2 % 11/15/17 07:28 Triglycerides 111 mg/dL (2-149) 11/13/17 07:20 Amylase 174 units/L (27-131) H 11/11/17 15:25 Lipase 231 units/L (13-60) H 11/13/17 07:20 CA 19-9 Antigen 26 U/mL (<34) 11/13/17 09:21 Plasma/Serum Alcohol < 0.01 % (0-0.07) 11/11/17 15:25
[2017-11-15 16:19] LABS: Bilirubin,Urine SM (Negative); Blood,Urine NEG (Negative); Color,Urine Amber (Yellow); Hyaline Casts,Urine 1 /LPF; Mucus,Urine 1+ /HPF; Nitrite,Urine NEG (Negative); Protein,Urine <15 mg/dL mg/dL (Negative)
[2017-11-15 16:21] LABS: Ictotest,Urine Positive (Negative)
[2017-11-15] MEDS: MORPHINE IV PRN (19:06)
[2017-11-16] MEDS: NACL 0.9% 1000 ML 1,000 ML IV SCH ×3 (07:08→17:12)
[2017-11-16 07:44] LABS: Alanine Aminotransferase 366 units/L (7-56); Albumin 3.4 g/dL (3.9-5); BUN/Creatinine Ratio 12; Blood Urea Nitrogen 6 mg/dL (9-20); Calcium 8.9 mg/dL (8.4-10.2); Hemolysis Index 1
[2017-11-16] MEDS ORDERED: WATER FOR IRRIG STERILE IR ONE (13:23)
[2017-11-16] MEDS ORDERED: NACL 0.9% 100 ML ONE (13:23)
--- NOTE | 2017-11-16 13:51 | Anesthesia Consultation ---
Anesthesia Consult and Med Hx Date of service: 11/16/17 - Airway Anesthetic Teeth Evaluation: Poor ROM Head & Neck: Adequate Mental/Hyoid Distance: Adequate Intubation Access Assessment: Good - Pre-Operative Health Status ASA Pre-Surgery Classification: ASA3 Proposed Anesthetic Plan: General - Pulmonary Hx Smoking: No Hx Asthma: No COPD: No Hx Pneumonia: No - Central Nervous System Hx Psychiatric Problems: No - Endocrine Hx End Stage Renal Disease: No Hx Liver Disease: Yes (Obstructive jaundice) - Other Systems Hx Alcohol Use: Yes Hx Cancer: No - Additional Comments Anesthesia Medical History Comments: NAC
--- NOTE | 2017-11-16 13:52 | Anesthesia Day of Surgery ---
Anesthesia Day of Surgery - Day of Surgery Patient Examined: Yes Patient H&P Reviewed: Yes Patient is NPO: Yes
[2017-11-16] MEDS ORDERED: VERSED ONE (14:00)
[2017-11-16] MEDS ORDERED: DIPRIVAN 10 MG/ML IV ONE ×3 (14:01)
--- NOTE | 2017-11-16 14:58 | Post Operative Note ---
Pre-op diagnosis: Obstructive jaundice Post-op diagnosis: other (Biliary stricture in distal duct, in intrapancreatic portion, with proximal dilation) Findings: 1. 3 cm biliary stricture in intrapancreatic portion of CBD, with proximal dilation. Sphincterotomy done, brushing obtained for cytology, and 10Fr, 5cm stent placed. Procedure: ERCP with ES, brushing, and stent placement Anesthesia: MAC Surgeon: RONA LARSEN Estimated blood loss: minimal Pathology: list (1. Biliary stricture) Specimen disposition: to lab Condition: stable Disposition: floor (Monitor for complications)
--- NOTE | 2017-11-16 15:36 | Fluoroscopy Report ---
FLUOROSCOPY ERCP BILIARY PANCREATIC DUCTS HISTORY: Obstructive jaundice. DESCRIPTION OF PROCEDURE: Fluoroscopy was provided by radiology during ERCP by gastroenterology. 6 fluoroscopic images were captured. The images demonstrate a 2-3 cm stricture in the distal common bile duct with proximal dilatation. Subsequent images demonstrate placement of a 10 [place] 5 cm common bile duct stent. Papillotomy was also performed. Please correlate with the procedural report by Dr. Ferro. Impression: Common bile duct stent placement as described.
--- NOTE | 2017-11-16 16:04 | Progress Note ---
Assessment and Plan Assessment and plan: 47-year-old -[place] man with past medical history significant for alcohol abuse presented to the emergency department complaining of abdominal pain and jaundice. Pancreatitis - Right upper quadrant pain, increased lipase - Patient was treated appropriately, currently abdominal pain subsided - Resolved Obstructive jaundice - ERCP was done this morning and stent was placed on the pancreatic portion of CBD Alcohol Abuse - Patient counseled - No signs of withdrawal DVT prophylaxis -Heparin Disposition - Possible DC in 1-2 days. History Interval history: Patient was seen and evaluated this morning, patient didn't have any pain. Hospitalist Physical - Physical exam Narrative exam: Not in cardiopulmonary distress. The patient appeared well nourished and normally developed. Vital signs as documented. Head exam is unremarkable. + scleral icterus . Neck is without jugular venous distension, thyromegaly, or carotid bruits. Lungs are clear to auscultation. Cardiac exam reveals regular rate and Rhythm. First and second heart sounds normal. No murmurs, rubs or gallops. Abdominal exam reveals normal bowel sounds, no masses, no organomegaly and no aortic enlargement. Extremities are nonedematous and both femoral and pedal pulses are normal. LAW EXAMINER: Alert and oriented 3. No focal weakness. - Constitutional Vitals: Temp Pulse Resp BP Pulse Ox 98.8 F 52 L 14 141/80 97 11/16/17 14:56 11/16/17 15:42 11/16/17 15:42 11/16/17 15:42 11/16/17 15:42 General appearance: Present: no acute distress Results - Labs CBC & Chem 7: 11/13/17 07:20 11/16/17 06:47 Labs: Laboratory Last Values WBC 4.4 K/mm3 (4.5-11.0) L 11/13/17 07:20 RBC 3.88 M/mm3 (3.65-5.03) 11/13/17 07:20 Hgb 12.3 gm/dl (11.8-15.2) 11/13/17 07:20 Hct 35.8 % (35.5-45.6) 11/13/17 07:20 MCV 92 fl (84-94) 11/13/17 07:20 MCH 32 pg (28-32) 11/13/17 07:20 MCHC 35 % (32-34) H 11/13/17 07:20 RDW 15.0 % (13.2-15.2) 11/13/17 07:20 Plt Count 229 K/mm3 (140-440) 11/13/17 07:20 Lymph % (Auto) 33.1 % (13.4-35.0) 11/13/17 07:20 [place] % (Auto) 7.8 % (0.0-7.3) H 11/13/17 07:20 Eos % (Auto) 3.4 % (0.0-4.3) 11/13/17 07:20 Baso % (Auto) 0.7 % (0.0-1.8) 11/13/17 07:20 Lymph # 1.4 K/mm3 (1.2-5.4) 11/13/17 07:20 [place] # 0.3 K/mm3 (0.0-0.8) 11/13/17 07:20 Eos # 0.1 K/mm3 (0.0-0.4) 11/13/17 07:20 Baso # 0.0 K/mm3 (0.0-0.1) 11/13/17 07:20 Seg Neutrophils % 55.0 % (40.0-70.0) 11/13/17 07:20 Seg Neutrophils # 2.4 K/mm3 (1.8-7.7) 11/13/17 07:20 PT 12.2 Sec. (12.2-14.9) 11/11/17 15:25 INR 0.87 (0.87-1.13) 11/11/17 15:25 APTT 31.7 Sec. (24.2-36.6) 11/11/17 15:25 Sodium 143 mmol/L (137-145) 11/16/17 06:47 Potassium 3.7 mmol/L (3.6-5.0) 11/16/17 06:47 Chloride 103.7 mmol/L (98-107) 11/16/17 06:47 Carbon Dioxide 27 mmol/L (22-30) 11/16/17 06:47 Anion Gap 16 mmol/L 11/16/17 06:47 BUN 6 mg/dL (9-20) L 11/16/17 06:47 Creatinine 0.5 mg/dL (0.8-1.5) L 11/16/17 06:47 Estimated GFR > 60 ml/min 11/16/17 06:47 BUN/Creatinine Ratio 12 % 11/16/17 06:47 Glucose 93 mg/dL (75-100) 11/16/17 06:47 Lactic Acid 1.10 mmol/L (0.7-2.0) 11/11/17 22:04 Calcium 8.9 mg/dL (8.4-10.2) 11/16/17 06:47 Total Bilirubin 10.40 mg/dL (0.1-1.2) H 11/16/17 06:47 Direct Bilirubin 10.3 mg/dL (0-0.2) H 11/11/17 15:25 Indirect Bilirubin 5.3 mg/dL 11/11/17 15:25 AST 149 units/L (5-40) H 11/16/17 06:47 ALT 366 units/L (7-56) H 11/16/17 06:47 Alkaline Phosphatase 292 units/L (35-129) H 11/16/17 06:47 Ammonia 39.0 umol/L (25-60) 11/11/17 15:25 Total Creatine Kinase 92 units/L (55-170) 11/11/17 15:25 C-Reactive Protein 0.20 mg/dL (0.00-1.30) 11/13/17 07:20 Total Protein 6.3 g/dL (6.3-8.2) 11/16/17 06:47 Albumin 3.4 g/dL (3.9-5) L 11/16/17 06:47 Albumin/Globulin Ratio 1.2 % 11/16/17 06:47 Triglycerides 111 mg/dL (2-149) 11/13/17 07:20 Amylase 174 units/L (27-131) H 11/11/17 15:25 Lipase 231 units/L (13-60) H 11/13/17 07:20 CA 19-9 Antigen 26 U/mL (<34) 11/13/17 09:21 Urine Color Aishwarya (Yellow) 11/15/17 Unknown Urine Turbidity Clear (Clear) 11/15/17 Unknown Urine pH 6.0 (5.0-7.0) 11/15/17 Unknown Ur Specific [place] 1.013 (1.003-1.030) 11/15/17 Unknown Urine Protein <15 mg/dl mg/dL (Negative) 11/15/17 Unknown Urine Glucose (UA) Neg mg/dL (Negative) 11/15/17 Unknown Urine Ketones Neg mg/dL (Negative) 11/15/17 Unknown Urine Blood Neg (Negative) 11/15/17 Unknown Urine Nitrite Neg (Negative) 11/15/17 Unknown Urine Bilirubin Sm (Negative) 11/15/17 Unknown Urine Ictotest Positive (Negative) 11/15/17 Unknown Urine Urobilinogen 2.0 mg/dL (<2.0) 11/15/17 Unknown Ur Leukocyte Esterase Neg (Negative) 11/15/17 Unknown Urine WBC (Auto) 5.0 /HPF (0.0-6.0) 11/15/17 Unknown Urine RBC (Auto) 1.0 /HPF (0.0-6.0) 11/15/17 Unknown U Epithel Cells (Auto) < 1.0 /HPF (0-13.0) 11/15/17 Unknown Hyaline Casts 1 /LPF 11/15/17 Unknown Urine Mucus 1+ /HPF 11/15/17 Unknown Plasma/Serum Alcohol < 0.01 % (0-0.07) 11/11/17 15:25
[2017-11-16] MEDS: MORPHINE IV PRN ×2 (17:51→20:51)
--- NOTE | 2017-11-16 19:50 | Operative Report ---
PROCEDURES: ERCP with sphincterotomy, brush cytology, and stent placement. PREOPERATIVE DIAGNOSIS: Obstructive jaundice. POSTOPERATIVE DIAGNOSIS: Biliary stricture in the intrapancreatic portion of the common bile duct. SEDATION: MAC by Anesthesia. HISTORY: The patient is a 47-year-old man who presented with obstructive jaundice. Procedure, indications, risks, and benefits were explained and consent was obtained. The patient was placed on abdomen on fluoroscopy table and sedated. Skemaz video duodenoscope was passed through the mouth and oropharynx into the descending duodenum. The scope was then gradually withdrawn with inspection of mucosa until the major papilla was visualized. Selective cannulation of the common bile duct was achieved using the fusion sphincterotome and guidewire. FINDINGS: 1. Bulging and edematous-appearing major papilla, which was difficult to get due to gastric anatomy and looping. 2. A 3 cm biliary stricture in the intrapancreatic portion of the common bile duct with proximal duct dilation to 12 mm. A 1 cm biliary sphincterotomy was performed at 12 o'clock direction. Subsequently, brush cytology was obtained from the stricture. Subsequently, a 10-Uzbek 5 cm long microvasive biliary stent was placed across the stricture in good position with good drainage noted at the end of the appointment. The patient tolerated the procedure well without immediate complications. Estimated blood loss was less than 2 mL. DEVICES: Biliary stent left in place. IMPRESSION: Biliary stricture in the intrapancreatic portion of the common bile duct -- worrisome for extrinsic compression. Sphincterotomy done, brushing done for cytology and stent placed. PLAN: 1. Monitor for complications and, if does well, may discharge to home tomorrow. 2. Follow up as outpatient to determine next steps and see what pathology shows. CA 19-9 level was not markedly elevated. The patient may well need an endoscopic ultrasound after this procedure or require a stent removal and expectant management. JOB# [id number] HRC/NTS
[2017-11-16] MEDS: TYLENOL PO PRN (21:44)
[2017-11-17 07:20] LABS: Alanine Aminotransferase 373 units/L (7-56); Albumin 3.2 g/dL (3.9-5); BUN/Creatinine Ratio 15; Blood Urea Nitrogen 6 mg/dL (9-20); Calcium 8.6 mg/dL (8.4-10.2); Hemolysis Index 19
[2017-11-17] MEDS ORDERED: K-DUR PO ONE (09:00)
[2017-11-17] MEDS: TYLENOL PO PRN ×2 (10:41→19:29)
--- NOTE | 2017-11-17 12:16 | Discharge Summary ---
Providers - Providers Date of Admission: 11/11/17 22:03 Date of discharge: 11/17/17 Attending physician: ROCAEL SCHUSTER 11/11/17 22:03 Consult to Physician [CONS] Routine Consulting Provider: ÓSCAR BASS Reason For Exam: dilated cbd Place consult to:: NEEL JEAN-BAPTISTE Notified:: NEEL Phone number called:: IN HOUSE Was contact made?: Yes If yes, spoke with:: NEEL Time called:: 09:02 Primary care physician: EMPLOYMENT LAW ATTORNEY Hospitalization Condition: Stable Hospital course: 47-year-old -[place] man with past medical history significant for alcohol abuse presented to the emergency department complaining of abdominal pain and jaundice. Discharge diagnosis and management: Pancreatitis - Right upper quadrant pain, increased lipase - Patient was treated appropriately, currently abdominal pain subsided - Resolved Obstructive jaundice due to biliary stricture - ERCP was done by and stent was placed on the pancreatic portion of CBD Alcohol Abuse - Patient counseled - No signs of withdrawal hypokalemia - repleted DVT prophylaxis -Heparin Hospitalist Physical Not in cardiopulmonary distress. The patient appeared well nourished and normally developed. Vital signs as documented. Head exam is unremarkable. + scleral icterus . Neck is without jugular venous distension, thyromegaly, or carotid bruits. Lungs are clear to auscultation. Cardiac exam reveals regular rate and Rhythm. First and second heart sounds normal. No murmurs, rubs or gallops. Abdominal exam reveals normal bowel sounds, no masses, no organomegaly and no aortic enlargement. Extremities are nonedematous and both femoral and pedal pulses are normal. SUPERVISOR FISH HATCHERY: Alert and oriented 3. No focal weakness. Disposition: DC- TO HOME OR SELFCARE Time spent for discharge: 32 minutes Core Measure Documentation - Palliative Care Palliative Care/ Comfort Measures: Not Applicable - Core Measures Any of the following diagnoses?: none Exam - Constitutional Vitals: Temp Pulse Resp BP Pulse Ox 98.6 F 66 20 133/84 98 11/17/17 07:40 11/17/17 07:40 11/17/17 10:41 11/17/17 07:40 11/17/17 07:40 Plan Activity: advance as tolerated Weight Bearing Status: Non-Weight Bearing Diet: low fat, low salt Additional Instructions: f/u with GI in one week. repeat LFT in one week Follow up with: PRIMARY MD GUS [Primary Care Provider] - 3-5 Days
--- NOTE | 2017-11-17 16:00 | Progress Note ---
Subjective Date of service: 11/17/17 Objective - Constitutional Vitals: Vital Signs - 12hr 11/17/17 11/17/17 07:40 10:41 Temperature 98.6 F Pulse Rate 66 Respiratory 15 20 Rate Blood Pressure 133/84 O2 Sat by Pulse 98 Oximetry General appearance: Present: no acute distress, well-nourished - Labs CBC & Chem 7: 11/13/17 07:20 11/17/17 06:06 Labs: Abnormal lab results 11/17/17 Range/Units 06:06 Potassium 3.1 L (3.6-5.0) mmol/L BUN 6 L (9-20) mg/dL Creatinine 0.4 L (0.8-1.5) mg/dL Total Bilirubin 9.20 H (0.1-1.2) mg/dL AST 167 H (5-40) units/L ALT 373 H (7-56) units/L Alkaline Phosphatase 296 H (35-129) units/L Total Protein 6.2 L (6.3-8.2) g/dL Albumin 3.2 L (3.9-5) g/dL
--- NOTE | 2017-11-17 16:02 | Progress Note ---
Assessment and Plan 1. Obstructive jaundice - with biliary stricture, s/p ERCP with brush cytology and stenting. - Pt doing well. - okay to D/C to home, with outpatient f/u with GI in 2 wks, for review of path , and then EUS or other evaluation. Subjective Date of service: 11/17/17 Interval history: Pt feels better. Has 1-2 loose BMs/d. Objective - Constitutional Vitals: Vital Signs - 12hr 11/17/17 11/17/17 07:40 10:41 Temperature 98.6 F Pulse Rate 66 Respiratory 15 20 Rate Blood Pressure 133/84 O2 Sat by Pulse 98 Oximetry General appearance: Present: no acute distress - EENT Eyes: PERRL, EOM intact, scleral icterus ENT: hearing intact - Gastrointestinal General gastrointestinal: Present: soft, non-tender - Labs CBC & Chem 7: 11/13/17 07:20 11/17/17 06:06 Labs: Abnormal lab results 11/17/17 Range/Units 06:06 Potassium 3.1 L (3.6-5.0) mmol/L BUN 6 L (9-20) mg/dL Creatinine 0.4 L (0.8-1.5) mg/dL Total Bilirubin 9.20 H (0.1-1.2) mg/dL AST 167 H (5-40) units/L ALT 373 H (7-56) units/L Alkaline Phosphatase 296 H (35-129) units/L Total Protein 6.2 L (6.3-8.2) g/dL Albumin 3.2 L (3.9-5) g/dL
[2017-11-17 19:00] VITALS: BP 138/93
== END 2017-11-17 23:53 | disposition home or self-care (01) | DRG 438 ==
LOC: EDBD → ED 13:46 → 3A 22:03
PROVIDERS: ADMIT Internal Medicine; ATTEND Internal Medicine
PROC: 0FJD8ZZ Inspection of Pancreatic Duct, Via Natural or Artificial Opening Endoscopic (ICD-10-PCS; principal; 2017-11-13)
PROC: 0F798DZ Dilation of Common Bile Duct with Intraluminal Device, Via Natural or Artificial Opening Endoscopic (ICD-10-PCS; 2017-11-16)
DX: K85.10 Biliary acute pancreatitis without necrosis or infection (principal); K83.1 Obstruction of bile duct; F10.10 Alcohol abuse, uncomplicated; Z82.49 Family history of ischemic heart disease and other diseases of the circulatory system; E87.6 Hypokalemia; Z71.41 Alcohol abuse counseling and surveillance of alcoholic
CPT/HCPCS: 36415; 74177; 74181; 74329; 74330; 80048; 80053; 80074; 80320; 81001; 82140; 82150; 82550; 83690; 84132; 84478; 85025; 85610; 85730; 86140; 86301; 88112; 96361; 96374; C1726; C2625; G0480; J0330; J1100; J1650; J2250; J2270; J2405; J2543; J2704; J2710; J3010; J7030; Q9967

== ENCOUNTER 2017-11-26 16:27 | Inpatient (IN) | payer SELFPAY ==
[2017-11-26] MEDS ORDERED: TORADOL IV ONE (20:11)
--- NOTE | 2017-11-26 20:11 | Emergency Department Report ---
Blank Doc - Documentation Documentation: Patient is a 47-year-old Dominican male who has a history of a biliary stent placed secondary to jaundice and possible malignancy on November 16 is presenting with fever. Patient has had intermittent left upper quadrant pain since his last ERCP patient saw his coordinator of placement today and was sent here for fever. Patient's fever was 102 at the doctor's office. Brief physical exam P patient has some mild left upper quadrant discomfort. CT and laboratory studies will be performed patient will be reassessed by the AP P
--- NOTE | 2017-11-26 20:49 | Emergency Department Report ---
HPI - General Chief Complaint: Upper Respiratory Infection Time Seen by Provider: 11/26/17 19:52 - HPI HPI: This is a 47 year-old male presents to the emergency department , sent in by his oil well driller Dr. Ferro, after the patient was found to have a high fever with recent biliary stent placement. The patient had a stent placed one week ago for obstructive jaundice after workup that brought him in to [facility] for intermittent abdominal pain and "my eyes were yellow" and some diarrhea. Over the past few days the patient has been having some mild intermittent abdominal pains and has had some chills but did not know that he had a fever. He took some Tylenol earlier today for his symptoms without much relief. He otherwise has a previous history of alcohol abuse but nothing recently. He denies any shortness of breath, cough, chest pain, back pain, nausea, vomiting or diarrhea. No recent travel or sick contacts at home. ED Past Medical Hx - Past Medical History Hx Congestive Heart Failure: No Hx Diabetes: No Hx Liver Disease: Yes (Obstructive jaundice) Hx Asthma: No Hx COPD: No Hx HIV: No Additional medical history: ETOH abuse - Surgical History Past Surgical History?: No - Social History Smoking Status: Never Smoker Substance Use Type: None - Medications Home Medications: Home Medications Medication Instructions Recorded Confirmed Last Taken Type No Known Home Medications [No 11/11/17 11/11/17 Unknown History Reported Home Medications] ED Review of Systems ROS: Stated complaint: FLU LIKE SYMPTOMS Other details as noted in HPI Constitutional: chills. denies: weakness Eyes: denies: eye pain, eye discharge, vision change ENT: denies: ear pain, throat pain Respiratory: denies: cough, shortness of breath, wheezing Cardiovascular: denies: chest pain, palpitations Gastrointestinal: abdominal pain. denies: vomiting Genitourinary: denies: urgency, dysuria Musculoskeletal: denies: back pain, joint swelling, arthralgia Skin: denies: rash, lesions Neurological: denies: headache, weakness, paresthesias Physical Exam - Physical Exam Vital Signs: Vital Signs 11/26/17 17:02 Temperature 99.2 F Pulse Rate 100 H Respiratory 16 Rate Blood Pressure 129/87 O2 Sat by Pulse 100 Oximetry Physical Exam: GENERAL: The patient is well-developed well-nourished. HENT: Normocephalic. Atraumatic. Patient has moist mucous membranes. EYES: Extraocular motions are intact. Pupils equal reactive to light bilaterally. +scleral icterus NECK: Supple. Trachea is midline. CHEST/LUNGS: Clear to auscultation. There is no respiratory distress noted. HEART/CARDIOVASCULAR: Regular. There is no tachycardia. There is no murmur. ABDOMEN: Abdomen is soft, nontender. Patient has normal bowel sounds. There is no abdominal distention. SKIN: Skin is warm and dry. NEURO: The patient is awake, alert, and oriented. The patient is cooperative. The patient has no focal neurologic deficits. The patient has normal speech. MUSCULOSKELETAL: There is no tenderness or deformity. There is no evidence of acute injury. ED Course Vital Signs 11/26/17 17:02 Temperature 99.2 F Pulse Rate 100 H Respiratory 16 Rate Blood Pressure 129/87 O2 Sat by Pulse 100 Oximetry - Consultations Consultation #1: I spoke with the oil well driller coupon clerk, Dr. Peña, who is aware of the patient's history of biliary stent placement and his visit today for fever and the elevated LFTs including alkaline phosphatase and bilirubin. He says that there is no emergent intervention necessary this evening and they will see the patient as a consult in the morning. I spoke with the general surgeon coupon clerk, Dr. Null, regarding the ultrasound reading concerning for cholecystitis. He says that it is most likely secondary to the obstruction and that they are mostly mentioning that there is gallbladder wall thickening and that it does not appear to require any immediate surgical intervention. He also agrees that it does not sound consistent with ascending cholangitis as the patient does not have any leukocytosis, any significant tenderness to palpation or have what appears to be a toxic or rigid abdomen. He feels that it is more likely to be a gastroenterology issue but he is happy to consult if requested. 11/27/17 00:36 ED Medical Decision Making - Lab Data Result diagrams: 11/26/17 20:16 11/26/17 20:16 - Radiology Data Radiology results: report reviewed PROCEDURE: CT ABDOMEN PELVIS WO CON TECHNIQUE: Computerized axial tomography of the abdomen and pelvis was performed without intravenous contrast. This study is performed without intravascular contrast material and its sensitivity for abdominal and pelvic pathology, including neoplasms, inflammation, abscess, free fluid, thrombosis, arterial dissection and infarction, is reduced compared with a contrast enhanced study. HISTORY: Abdominal Pain COMPARISON: 11/11/2017 FINDINGS: Liver, spleen, and bilateral adrenal glands are within normal limits. Left kidney demonstrates a cystic lesion measuring 1.6 x 1.4 centimeters. There are no renal calculi or hydronephrosis. Urinary bladder is partially filled with normal outlines. Aorta is of normal caliber. There is no free fluid or free air. Gallbladder is well distended with normal outlines. Sludge is identified in the gallbladder fundus. A plastic biliary stent is in place. Pancreatic duct is dilated measuring about 6 millimeters. An ill-defined hypodense lesion measuring 1.9 x 1.1 centimeters is noted in the pancreatic neck. IMPRESSION: This study is limited due to lack of contrast. A biliary stent is in place without any obvious evidence of intrahepatic or extrahepatic biliary dilatation. Dilated pancreatic duct Ill-defined hypodense lesion in the pancreatic neck also most likely represents a dilated pancreatic duct as visualized on the prior study of 11/11/2017. Gallbladder sludge. Ultrasound evaluation is recommended. Transcribed By: [facility] [place] Dictated By: DANIEL HARP Electronically Authenticated By: DANIEL HARP Signed Date/Time: 11/26/17 3257 PROCEDURE: US ABDOMEN LIMITED TECHNIQUE: Real-time sonography was performed of the right upper quadrant with image documentation. CPT 75949 HISTORY: biliary stent, elevated LFT's / bili COMPARISON: No prior studies are available for comparison. FINDINGS: Liver and right kidney demonstrate normal echotexture without focal lesions. Right kidney measures 10 x 4 centimeters without any calculi or hydronephrosis. Gallbladder is moderately distended with mildly thickened palomino. Moderate degree sludge is identified. There are not no pericholecystic collections. Common duct is 4 millimeters in caliber. Pancreas is not visualized due to bowel gas.. IMPRESSION: Thickened palomino of gallbladder are suspicious for acute cholecystitis. Differential diagnosis includes other etiologies such as hepatitis, CHF etc. There is no evidence of cholelithiasis. Transcribed By: [facility] [place] Dictated By: DANIEL HARP Electronically Authenticated By: DANIEL HARP Signed Date/Time: 11/26/17 708 - Medical Decision Making Patient has not had any high-grade fever here started to develop a low-grade at 99.9. Labs show elevated LFTs, hyperbilirubinemia, elevated alkaline phosphatase but no elevation in the lipase. CT shows possible pancreatic duct dilated dictation but no biliary duct dilation. Ultrasound shows possible cholecystitis. I spoke with gastroenterology who feels it could be a partial obstruction of the common bile duct. I spoke to surgery who does not feel that appears consistent with cholecystitis and agrees that it does not sound like cholangitis. Patient has been resting comfortably. I covered him with some antibiotics. Vital signs stable throughout his ED course. He will be admitted to the hospitalist service and was accepted by Dr. Schulte. - Differential Diagnosis cholecystitis, cholangitis, obstructive jaundice, malignancy Critical Care Time: No Critical care attestation.: If time is entered above; I have spent that time in minutes in the direct care of this critically ill patient, excluding procedure time. ED Disposition Clinical Impression: Extrahepatic obstructive biliary disease, Transaminitis, Hyperbilirubinemia Abdominal pain Qualifiers: Abdominal location: unspecified location Qualified Code(s): R10.9 - Unspecified abdominal pain Disposition: OP ADMIT IP TO THIS HOSP Is pt being admited?: Yes Condition: Stable Referrals: PRIMARY CARE, [Primary Care Provider] - 3-5 Days Time of Disposition: 03:50
[2017-11-26 20:54] LABS: Basophils # (Auto) 0.1 K/mm3 (0.0-0.1); Basophils % (Auto) 0.7 % (0.0-1.8); Eosinophils % (Auto) 0.2 % (0.0-4.3); Hematocrit 39.2 % (35.5-45.6); Hemoglobin 13.4 gm/dl (11.8-15.2); Lymphocytes # (Auto) 1.2 K/mm3 (1.2-5.4); Mean Corpuscular HGB Conc 34 % (32-34); Mean Corpuscular Hemoglobin 32 pg (28-32); Mean Corpuscular Volume 93 fl (84-94); Monocytes # (Auto) 0.5 K/mm3 (0.0-0.8); Monocytes % (Auto) 6.8 % (0.0-7.3); Platelet Count 361 K/mm3 (140-440); Red Blood Count 4.23 M/mm3 (3.65-5.03); Red Cell Distribution Width 15.3 % (13.2-15.2)
[2017-11-26 20:55] LABS: Alanine Aminotransferase 331 units/L (7-56); Albumin 4.1 g/dL (3.9-5); BUN/Creatinine Ratio 18; Bilirubin,Direct 6.7 mg/dL (0-0.2); Blood Urea Nitrogen 7 mg/dL (9-20); Hemolysis Index 0; Lipase 17 units/L (13-60)
[2017-11-26 21:18] LABS: INR 0.95 (0.87-1.13)
--- NOTE | 2017-11-26 21:38 | Cat Scan Report ---
FINAL REPORT PROCEDURE: CT ABDOMEN PELVIS WO CON TECHNIQUE: Computerized axial tomography of the abdomen and pelvis was performed without intravenous contrast. This study is performed without intravascular contrast material and its sensitivity for abdominal and pelvic pathology, including neoplasms, inflammation, abscess, free fluid, thrombosis, arterial dissection and infarction, is reduced compared with a contrast enhanced study. HISTORY: Abdominal Pain COMPARISON: 11/11/2017 FINDINGS: Liver, spleen, and bilateral adrenal glands are within normal limits. Left kidney demonstrates a cystic lesion measuring 1.6 x 1.4 centimeters. There are no renal calculi or hydronephrosis. Urinary bladder is partially filled with normal outlines. Aorta is of normal caliber. There is no free fluid or free air. Gallbladder is well distended with normal outlines. Sludge is identified in the gallbladder fundus. A plastic biliary stent is in place. Pancreatic duct is dilated measuring about 6 millimeters. An ill-defined hypodense lesion measuring 1.9 x 1.1 centimeters is noted in the pancreatic neck. IMPRESSION: This study is limited due to lack of contrast. A biliary stent is in place without any obvious evidence of intrahepatic or extrahepatic biliary dilatation. Dilated pancreatic duct Ill-defined hypodense lesion in the pancreatic neck also most likely represents a dilated pancreatic duct as visualized on the prior study of 11/11/2017. Gallbladder sludge. Ultrasound evaluation is recommended.
--- NOTE | 2017-11-26 23:57 | Ultrasound Report ---
FINAL REPORT PROCEDURE: US ABDOMEN LIMITED TECHNIQUE: Real-time sonography was performed of the right upper quadrant with image documentation. CPT 80069 HISTORY: biliary stent, elevated LFT's / bili COMPARISON: No prior studies are available for comparison. FINDINGS: Liver and right kidney demonstrate normal echotexture without focal lesions. Right kidney measures 10 x 4 centimeters without any calculi or hydronephrosis. Gallbladder is moderately distended with mildly thickened palomino. Moderate degree sludge is identified. There are not no pericholecystic collections. Common duct is 4 millimeters in caliber. Pancreas is not visualized due to bowel gas.. IMPRESSION: Thickened palomino of gallbladder are suspicious for acute cholecystitis. Differential diagnosis includes other etiologies such as hepatitis, CHF etc. There is no evidence of cholelithiasis.
[2017-11-27] MEDS ORDERED: ZOSYN/NS 4.5GM/100ML 4.5 GM/100 ML VIAL IV SCH (01:00)
[2017-11-27] MEDS: HEPARIN SUB-Q SCH ×3 (05:58→22:01)
--- NOTE | 2017-11-27 06:11 | History and Physical Report ---
History of Present Illness Date of examination: 11/27/17 Date of admission: 11/27/17 03:25 Chief complaint: Fever and upper respiratory infection History of present illness: This is a 47 year-old male presents to the emergency department , sent in by his overhead irrigator Dr. Ferro, after the patient was found to have a high fever with recent biliary stent placement. The patient had a stent placed one week ago for obstructive jaundice after workup that brought him in to [facility] for intermittent abdominal pain and "my eyes were yellow" and some diarrhea. Over the past few days the patient has been having some mild intermittent abdominal pains and has had some chills but did not know that he had a fever. He took some Tylenol earlier today for his symptoms without much relief. He otherwise has a previous history of alcohol abuse but nothing recently. He denies any shortness of breath, cough, chest pain, back pain, nausea, vomiting or diarrhea. No recent travel or sick contacts at home. PAST MEDICAL HISTORY:alcohol abuse , biliary stricture, s/p ERCP PAST SURGICAL HISTORY: Biliary stent placement FAMILY HISTORY: hypertention SOCIAL HISTORY: Drank one fifth of liquor on weekends, no tobacco or drugs Medications and Allergies Allergies Allergy/AdvReac Type Severity Reaction Status Date / Time No Known Allergies Allergy Verified 11/26/17 17:02 Home Medications Medication Instructions Recorded Confirmed Last Taken Type No Known Home Medications [No 11/11/17 11/11/17 Unknown History Reported Home Medications] Active Meds: Active Medications Heparin Sodium (Porcine) (Heparin) 5,000 unit SUB-Q Q8HR DAY Last Admin: 11/27/17 05:58 Dose: 5,000 unit Influenza Virus Vaccine Quadrival (Fluarix Quad 1342-9106(36 Mos+) 0.5 ml IM .ONCE ONE Stop: 11/27/17 12:01 Review of Systems All systems: negative Exam - Physical Exam Narrative exam: General: the patient is awake alert oriented to time place and person. no evidence of acute distress HEENT: Head is atraumatic normocephalic,. Pupils equal round reactive to light and accommodation, extraocular movements intact. Scleral icterus noted. Oral mucosa moist. Oropharynx clear. No pharyngeal erythema or tonsillar exudate. Neck: Supple no JVD no thyromegaly or lymphadenopathy. Heart: Regular rate and rhythm no murmurs or gallops. S1 and S2 normal. PMI not displaced. Lungs: Clear to auscultation bilaterally. No rales rhonchi wheezing. Nonlabored breathing. Normal chest wall expansion. Abdomen: Soft, nondistended, and nontender. Normoactive bowel sounds. No hepatosplenomegaly. No abdominal masses or bruit appreciated. Extremities: No cyanosis/clubbing/ edema. Musculoskeletal: Normal range of movement all joints. No obvious deformity or tenderness to palpation. Normal muscle tone. Back: Normal alignment. No step-off. No midline or paraspinal tenderness. No CVA tenderness. Neurological: Grossly intact and nonfocal. No cerebellar signs. Cranial nerves II-12 grossly intact. Strength 5 out of 5 all 4 extremities. Sensations grossly intact. Skin: Warm and dry no rashes or bruises. Psychiatric: Normal mood. Appropriate affect and good insight and judgment. Vascular system: No lymphadenopathy. Distal pulses 2+ bilaterally. - Constitutional Vitals: Temp Pulse Resp BP Pulse Ox 97.9 F 76 18 115/79 100 11/27/17 04:29 11/27/17 04:29 11/27/17 04:29 11/27/17 04:29 11/27/17 04:29 Results - Labs CBC & Chem 7: 11/26/17 20:16 11/26/17 20:16 Labs: Laboratory Last Values WBC 8.0 K/mm3 (4.5-11.0) 11/26/17 20:16 RBC 4.23 M/mm3 (3.65-5.03) 11/26/17 20:16 Hgb 13.4 gm/dl (11.8-15.2) 11/26/17 20:16 Hct 39.2 % (35.5-45.6) 11/26/17 20:16 MCV 93 fl (84-94) 11/26/17 20:16 MCH 32 pg (28-32) 11/26/17 20:16 MCHC 34 % (32-34) 11/26/17 20:16 RDW 15.3 % (13.2-15.2) H 11/26/17 20:16 Plt Count 361 K/mm3 (140-440) 11/26/17 20:16 Lymph % (Auto) 15.0 % (13.4-35.0) 11/26/17 20:16 Stone % (Auto) 6.8 % (0.0-7.3) 11/26/17 20:16 Eos % (Auto) 0.2 % (0.0-4.3) 11/26/17 20:16 Baso % (Auto) 0.7 % (0.0-1.8) 11/26/17 20:16 Lymph # 1.2 K/mm3 (1.2-5.4) 11/26/17 20:16 Stone # 0.5 K/mm3 (0.0-0.8) 11/26/17 20:16 Eos # 0.0 K/mm3 (0.0-0.4) 11/26/17 20:16 Baso # 0.1 K/mm3 (0.0-0.1) 11/26/17 20:16 Seg Neutrophils % 77.3 % (40.0-70.0) H 11/26/17 20:16 Seg Neutrophils # 6.2 K/mm3 (1.8-7.7) 11/26/17 20:16 PT 13.1 Sec. (12.2-14.9) 11/26/17 20:16 INR 0.95 (0.87-1.13) 11/26/17 20:16 Sodium 139 mmol/L (137-145) 11/26/17 20:16 Potassium 3.5 mmol/L (3.6-5.0) L 11/26/17 20:16 Chloride 94.7 mmol/L (98-107) L 11/26/17 20:16 Carbon Dioxide 24 mmol/L (22-30) 11/26/17 20:16 Anion Gap 24 mmol/L 11/26/17 20:16 BUN 7 mg/dL (9-20) L 11/26/17 20:16 Creatinine 0.4 mg/dL (0.8-1.5) L 11/26/17 20:16 Estimated GFR > 60 ml/min 11/26/17 20:16 BUN/Creatinine Ratio 18 % 11/26/17 20:16 Glucose 100 mg/dL (75-100) 11/26/17 20:16 Calcium 10.0 mg/dL (8.4-10.2) 11/26/17 20:16 Total Bilirubin 9.40 mg/dL (0.1-1.2) H 11/26/17 20:16 Direct Bilirubin 6.7 mg/dL (0-0.2) H 11/26/17 20:16 Indirect Bilirubin 2.7 mg/dL 11/26/17 20:16 AST 186 units/L (5-40) H 11/26/17 20:16 ALT 331 units/L (7-56) H 11/26/17 20:16 Alkaline Phosphatase 1008 units/L (35-129) H 11/26/17 20:16 Total Protein 8.7 g/dL (6.3-8.2) H 11/26/17 20:16 Albumin 4.1 g/dL (3.9-5) 11/26/17 20:16 Albumin/Globulin Ratio 0.9 % 11/26/17 20:16 Amylase 73 units/L (27-131) 11/26/17 20:16 Lipase 17 units/L (13-60) 11/26/17 20:16 - Imaging and Cardiology Imaging and Cardiology: CT ABDOMEN PELVIS WO CON - This study is limited due to lack of contrast. A biliary stent is in place without any obvious evidence of intrahepatic or extrahepatic biliary dilatation. Dilated pancreatic duct. Ill-defined hypodense lesion in the pancreatic neck also most likely represents a dilated pancreatic duct as visualized on the prior study of 11/11/2017. US ABDOMEN LIMITED - Thickened palomino of gallbladder are suspicious for acute cholecystitis. Differential diagnosis includes other etiologies such as hepatitis, CHF etc. There is no evidence of cholelithiasis. Assessment and Plan Assessment and plan: Assessment and plan- * Acute cholecystitis * Cholelithiasis * obstructive jaundice * Biliary stricture status post failed ERCP and later on status post biliary stent placement last week * Febrile but no leukocytosis * Transaminitis Plan - Admitted to medical surgical floor with telemetry GI and general surgery consulted the emergency patient in a.m. Keep patient nothing by mouth IV fluids supportive and symptomatic management and empiric antibiotics in the form of Levaquin IV Blood cultures follow up results Monitor CBC and electrolytes Replace electrolytes when necessary as per protocol DVT prophylaxis. SCDs only that his mechanical prophylaxis no anticoagulation in view of impending surgery GI prophylaxis with Protonix Monitor and follow the patient closely
[2017-11-27] MEDS ORDERED: TYLENOL PO PRN (06:14)
[2017-11-27] MEDS ORDERED: ZOFRAN IV PRN (06:14)
[2017-11-27] MEDS ORDERED: PROVENTIL IH PRN (06:14)
[2017-11-27] MEDS ORDERED: DULCOLAX PR PRN (06:14)
[2017-11-27] MEDS ORDERED: D5/0.45NS 1,000 ML IV SCH (07:00)
[2017-11-27 07:43] LABS: Basophils % (Auto) 0.3 % (0.0-1.8); Eosinophils # (Auto) 0.1 K/mm3 (0.0-0.4); Eosinophils % (Auto) 1.1 % (0.0-4.3); Hematocrit 38.9 % (35.5-45.6); Hemoglobin 13.3 gm/dl (11.8-15.2); Lymphocytes # (Auto) 1.3 K/mm3 (1.2-5.4); Lymphocytes % (Auto) 22.1 % (13.4-35.0); Mean Corpuscular HGB Conc 34 % (32-34); Mean Corpuscular Hemoglobin 32 pg (28-32); Mean Corpuscular Volume 92 fl (84-94); Monocytes # (Auto) 0.6 K/mm3 (0.0-0.8); Platelet Count 335 K/mm3 (140-440); Red Blood Count 4.21 M/mm3 (3.65-5.03); Red Cell Distribution Width 15.1 % (13.2-15.2)
[2017-11-27 07:53] LABS: Magnesium 2.2 mg/dL (1.7-2.3)
[2017-11-27 07:57] LABS: Alanine Aminotransferase 279 units/L (7-56); Albumin 4.1 g/dL (3.9-5); BUN/Creatinine Ratio 18; Blood Urea Nitrogen 11 mg/dL (9-20); Calcium 10.2 mg/dL (8.4-10.2); Hemolysis Index 0
[2017-11-27 08:10] LABS: INR 0.94 (0.87-1.13)
[2017-11-27] MEDS: MORPHINE IV PRN ×2 (09:36→22:03)
[2017-11-27] MEDS ORDERED: PEPCID IV SCH (10:00)
[2017-11-27] MEDS ORDERED: Fluarix Quad 2017-2018(36 MOS+ IM ONE (12:00)
--- NOTE | 2017-11-27 12:45 | Gastroenterology Consultation ---
History of Present Illness - Reason for Consult Consult date: 11/27/17 Fever, Pancreas Mass Requesting physician: GEORGE PARKER - History of Present Illness The patient is a 47 yo male sent from the clinic for fever yesterday. He has a hx of pancreatic mass dx about 2 weeks ago. It was stented (and LFTs are stable ). He came to clinic not for the fever but for a routine check up. No fevers here overnight, and he has no severe pain; he is hungry and wants to eat. Kidney and WBC levels WNL. He has no followed up with surgery for EUS or consult for resection of possible mass (brushings of stricture probable but not definite for malignancy). There is no family hx of pancreatic cancer. He does have a hx of EtOH abuse, but there was no chronic pancreatitis on imaging. Past History Past Medical History: other (pancreas mass) Past Surgical History: Other (ERCP with stent) Social history: smoking, alcohol abuse Family history: hypertension Medications and Allergies Allergies Allergy/AdvReac Type Severity Reaction Status Date / Time No Known Allergies Allergy Verified 11/26/17 17:02 Home Medications Medication Instructions Recorded Confirmed Last Taken Type No Known Home Medications [No 11/11/17 11/11/17 Unknown History Reported Home Medications] Active Meds: Active Medications Acetaminophen (Tylenol) 650 mg PO Q4H PRN PRN Reason: Pain MILD(1-3)/Fever >100.5/ZHENG Albuterol (Proventil) 2.5 mg IH Q4HRT PRN PRN Reason: Shortness Of Breath Bisacodyl (Dulcolax) 10 mg RI QDAY PRN PRN Reason: Constipation unrelieved by MOM Famotidine (Pepcid) 20 mg IV BID [facility] Last Admin: 11/27/17 09:37 Dose: 20 mg Heparin Sodium (Porcine) (Heparin) 5,000 unit SUB-Q Q8HR [facility] Last Admin: 11/27/17 05:58 Dose: 5,000 unit Dextrose/Sodium Chloride (D5/0.45ns) 1,000 mls @ 125 mls/hr IV DIRECT DAY Morphine Sulfate (Morphine) 2 mg IV Q4H PRN PRN Reason: Pain, Moderate (4-6) Last Admin: 11/27/17 09:36 Dose: 2 mg Ondansetron HCl (Zofran) 4 mg IV Q8H PRN PRN Reason: N/V unrelieved by Carleen I HAVE REVIEWED AND RECONCILED MEDICATIONS Review of Systems - Review of Systems All systems: negative (as noted in the HPI.) Exam - Constitutional Vital Signs: Temp Pulse Resp BP Pulse Ox 98.8 F 82 16 135/82 96 11/27/17 07:43 11/27/17 07:43 11/27/17 09:36 11/27/17 07:43 11/27/17 09:33 General appearance: no acute distress - EENT Eyes: PERRL, EOM intact, scleral icterus ENT: hearing intact, clear oral mucosa, no thrush - Neck Neck: supple, normal ROM - Respiratory Respiratory effort: normal Respiratory: bilateral: CTA - Cardiovascular Rhythm: regular Heart Sounds: Present: S1 & S2 Extremities: no ischemia, No edema - Gastrointestinal General gastrointestinal: Present: soft, tender (RUQ location of stent; very mild and no guard ("it's been like this for weeks/before stent")), non-distended - Integumentary Integumentary: Present: clear, warm, dry - Neurologic Neurological: alert and oriented x3 - Labs CBC & Chem 7: 11/27/17 07:16 11/27/17 07:16 Lab Results: Laboratory Results - last 24 hr 11/26/17 11/26/17 11/26/17 20:16 20:16 20:16 WBC 8.0 RBC 4.23 Hgb 13.4 Hct 39.2 MCV 93 MCH 32 MCHC 34 RDW 15.3 H Plt Count 361 Lymph % (Auto) 15.0 [place] % (Auto) 6.8 Eos % (Auto) 0.2 Baso % (Auto) 0.7 Lymph # 1.2 [place]shaw # 0.5 Eos # 0.0 Baso # 0.1 Seg Neutrophils % 77.3 H Seg Neutrophils # 6.2 PT 13.1 INR 0.95 Sodium 139 Potassium 3.5 L Chloride 94.7 L Carbon Dioxide 24 Anion Gap 24 BUN 7 L Creatinine 0.4 L Estimated GFR > 60 BUN/Creatinine Ratio 18 Glucose 100 Calcium 10.0 Phosphorus Magnesium Total Bilirubin 9.40 H Direct Bilirubin 6.7 H Indirect Bilirubin 2.7 AST 186 H ALT 331 H Alkaline Phosphatase 1008 H Total Protein 8.7 H Albumin 4.1 Albumin/Globulin Ratio 0.9 Amylase 73 Lipase 17 02/16/18 18 18 07:16 07:16 07:16 WBC 5.8 RBC 4.21 Hgb 13.3 Hct 38.9 MCV 92 MCH 32 MCHC 34 RDW 15.1 Plt Count 335 Lymph % (Auto) 22.1 [place] % (Auto) 10.0 H Eos % (Auto) 1.1 Baso % (Auto) 0.3 Lymph # 1.3 [place]shaw # 0.6 Eos # 0.1 Baso # 0.0 Seg Neutrophils % 66.5 Seg Neutrophils # 3.8 PT 13.0 INR 0.94 Sodium 146 H D Potassium 4.2 Chloride 98.7 Carbon Dioxide 26 Anion Gap 26 BUN 11 Creatinine 0.6 L Estimated GFR > 60 BUN/Creatinine Ratio 18 Glucose 99 Calcium 10.2 Phosphorus Magnesium Total Bilirubin 9.50 H Direct Bilirubin Indirect Bilirubin AST 151 H ALT 279 H Alkaline Phosphatase 884 H Total Protein 8.0 Albumin 4.1 Albumin/Globulin Ratio 1.1 Amylase Lipase 11/27/17 07:16 WBC RBC Hgb Hct MCV MCH MCHC RDW Plt Count Lymph % (Auto) [place]renshaw % (Auto) Eos % (Auto) Baso % (Auto) Lymph # [place]shaw # Eos # Baso # Seg Neutrophils % Seg Neutrophils # PT INR Sodium Potassium Chloride Carbon Dioxide Anion Gap BUN Creatinine Estimated GFR BUN/Creatinine Ratio Glucose Calcium Phosphorus 4.00 Magnesium 2.20 Total Bilirubin Direct Bilirubin Indirect Bilirubin AST ALT Alkaline Phosphatase Total Protein Albumin Albumin/Globulin Ratio Amylase Lipase Assessment and Plan - Patient Problems (1) Fever Current Visit: Yes Status: Acute Plan to address problem: - Blood cultures negative, and fever resolved; wbc WNL. - I would favor 7 days of levofloxacin, and observation (since LFTs near baseline). - If stable tomorrow with negative blood cultures, may d/c home. (2) Malignant biliary obstruction Current Visit: Yes Status: Acute Plan to address problem: - Discussed with the patient (as Ksaie had in the clinic 11/26) the diagnosis. - Emphasized the importance of follow up and what the next steps would be (EUS with FNA to confirm mass, versus repeat MRI with confirmation), followed by surgery or chemo (depending on stage). - Emphasized as well the responsibility he has for applying for health insurance as it will be difficult for him to find a surgeon/oncologist, etc to accept his case on a milla/indigent basis (he voices understanding of the process).
[2017-11-27] MEDS: LEVAQUIN PO SCH (14:05)
--- NOTE | 2017-11-27 17:49 | Event Note ---
Date: 11/27/17 Patient seen and examined, discussed with GI will re-evaluate in am and possible discharge on 7 days of abx. Patient verbalizes understanding of clinical condition and the importance of following up.
[2017-11-28 06:36] LABS: Basophils % (Auto) 0.6 % (0.0-1.8); Eosinophils # (Auto) 0.1 K/mm3 (0.0-0.4); Eosinophils % (Auto) 1.3 % (0.0-4.3); Hematocrit 36.6 % (35.5-45.6); Hemoglobin 12.6 gm/dl (11.8-15.2); Lymphocytes # (Auto) 1.2 K/mm3 (1.2-5.4); Lymphocytes % (Auto) 27.9 % (13.4-35.0); Mean Corpuscular HGB Conc 34 % (32-34); Mean Corpuscular Hemoglobin 31 pg (28-32); Mean Corpuscular Volume 91 fl (84-94); Monocytes # (Auto) 0.5 K/mm3 (0.0-0.8); Monocytes % (Auto) 10.7 % (0.0-7.3); Platelet Count 368 K/mm3 (140-440); Red Blood Count 4.04 M/mm3 (3.65-5.03); Red Cell Distribution Width 14.7 % (13.2-15.2)
[2017-11-28] MEDS: HEPARIN SUB-Q SCH (06:47)
[2017-11-28 06:56] LABS: Alanine Aminotransferase 232 units/L (7-56); Albumin 3.6 g/dL (3.9-5); BUN/Creatinine Ratio 12; Blood Urea Nitrogen 7 mg/dL (9-20); Calcium 9.4 mg/dL (8.4-10.2); Hemolysis Index 0
[2017-11-28 08:43] VITALS: BP 120/78
[2017-11-28] MEDS: LEVAQUIN PO SCH (09:15)
--- NOTE | 2017-11-28 09:54 | Discharge Summary ---
Providers - Providers Date of Admission: 11/27/17 03:25 Date of discharge: 11/28/17 Attending physician: GEORGE PARKER MD 11/27/17 00:34 Consult to Physician [CONS] Routine Consulting Provider: RONA LARSEN Reason For Exam: Obstructive jaundice, bilary stent, elevated LFT Place consult to:: liliana Notified:: yes Was contact made?: Yes If yes, spoke with:: Dr Peña Primary care physician: PULP OPERATOR Hospitalization Condition: Stable Disposition: DC-01 TO HOME OR SELFCARE Time spent for discharge: 35 mins Core Measure Documentation - Palliative Care Palliative Care/ Comfort Measures: Not Applicable Exam - Constitutional Vitals: Temp Pulse Resp BP Pulse Ox 98.8 F 83 16 120/78 99 11/28/17 07:40 11/28/17 07:40 11/28/17 07:40 11/28/17 07:40 11/28/17 07:40 Plan Activity: advance as tolerated, fall precautions Special Instructions: record daily BP diary Follow up with: AMRIT WEBER MD [Primary Care Provider] - 3-5 Days RONA LARSEN MD [Staff Physician] - 7 Days Prescriptions: Levofloxacin [Levaquin TAB] 500 mg PO Q24HR #6 tablet Ondansetron [Zofran TAB] 4 mg PO Q8HR PRN #30 tablet PRN Reason: Nausea traMADol [Ultram] 50 mg PO Q6HR PRN #14 tablet PRN Reason: Pain
== END 2017-11-28 14:25 | disposition home or self-care (01) | DRG 446 ==
LOC: ED 16:27 → 3A 11-27 03:25
PROVIDERS: ADMIT Internal Medicine Geriatric Medicine; ATTEND Internal Medicine
PROC: 3E0234Z Introduction of Serum, Toxoid and Vaccine into Muscle, Percutaneous Approach (ICD-10-PCS; principal; 2017-11-27)
DX: K80.00 Calculus of gallbladder with acute cholecystitis without obstruction (principal); R74.0 Nonspecific elevation of levels of transaminase and lactic acid dehydrogenase [LDH]; F17.200 Nicotine dependence, unspecified, uncomplicated; E80.6 Other disorders of bilirubin metabolism; Z23 Encounter for immunization; Z82.49 Family history of ischemic heart disease and other diseases of the circulatory system
CPT/HCPCS: 36415; 74176; 76705; 80048; 80053; 80074; 82150; 83690; 83735; 84100; 85025; 85610; 87040; 90686; J1644; J1885; J2270; J2543